=== PATIENT | female | born 1935 | race Caucasian/White ===

== ENCOUNTER 2020-07-06 09:02 | Observation (INO) ==
[2020-07-06] MEDS ORDERED: NORMAL SALINE 1,000 ML IV ONE (09:42)
--- NOTE | 2020-07-06 10:16 | ERNOTE ---
ER Female HPI Date of Service: 07/06/20 Stated Complaint: dizziness Presenting Symptoms: other - uti Time Seen by Provider: 07/06/20 09:18 Source: patient Exam Limitations: no limitations Immunizations: IMMUNIZATION HX Immunizations Up to Date Yes History of Influenza Vaccine Yes Hx Pneumococcal Vaccination Yes Allergies/Adverse Reactions: Allergies No Known Allergies Allergy (Unverified 03/11/19 08:51) Home Medications: HOME MEDICATIONS calcium carbonate-vitamin D3 600 mg (1,500 mg)-800 unit tablet 1 tab PO DAILY 03/11/19 [Last Taken Unknown] cholecalciferol (vitamin D3) 25 mcg (1,000 unit) capsule 1,000 unit PO DAILY 03/11/19 [Last Taken Unknown] metoprolol tartrate 25 mg tablet 25 mg PO BID 03/11/19 [Last Taken Unknown] - History of Present Illness Narrative: Patient presents to the ED for several complaints. She relates that she has had several days of intermittent dysuria. Some off and on left low back pain. She relates some dizziness with standing. Left leg swelling since the covid from sitting too much. No CP. She relates some SOB with activity. Has not seen anyone else for this. EMS called this am because she was not feeling well. Timing: Present: intermittent Quality: Present: moderate Onset Location: Present: other - dysuria, intermittent low back pain. Radiation: Present: none Activities at Onset: Present: none Prior Abdominal Problems: Present: none Modifying Factors - (Improves): Present: other - nothing Modifying Factors - (Worsens): Present: other - nothing Associated Symptoms: Present: dysuria. Absent: fever/chills, vomiting Prior Treatment: Absent: recently seen, currently on antibiotics Review of Systems - Review of Systems Constitutional: Absent: fever ENT: Present: other - sinus problems ever since COVID Respiratory: Absent: orthopnea Cardiology: Absent: chest pain Gastrointestinal/Abdominal: Absent: abdominal pain Genitourinary: Present: See HPI Musculoskeletal: Present: See HPI Neurological: Absent: weakness All Other Systems: All systems neg except as marked Medical History (Last Reviewed 07/06/20 @ 10:15 by Shahram Atkins MD) Afib (Chronic) Surgical History: Surgical History (Last Reviewed 07/06/20 @ 10:15 by Shahram Atkins MD) Femur fracture (Chronic) October 2017 Family History: Family History (Last Reviewed 07/06/20 @ 10:15 by Shahram Atkins MD) Other No pertinent family history Social History: (Last Reviewed 07/06/20 @ 10:15 by Shahram Atkins MD) Social History: Marital status: lives independently: Yes household members: spouse current occupational status: retired Service: No Tobacco: Smoking Status: Never smoker Alcohol: alcohol intake: never Substance Use: substance use type: does not use Dietary Habits: caffeine: Yes Type: coffee Physical Exam - Physical Exam General Appearance: Present: alert, other - mild tachypnea Head Exam: Present: normal inspection, no evidence of injury Eye Exam: Normal inspection: bilateral, PERRL: bilateral Ears, Nose, Throat: Present: normal ENT inspection Neck: Present: normal inspection Respiratory: Present: no respiratory distress, no accessory muscle use, lungs clear, other - tachypnea noted Cardiovascular/Chest: Present: regular rate, rhythm, normal peripheral pulses Gastrointestinal/Abdominal: Present: normal bowel sounds, nontender, nondistended, soft Back Exam: Absent: CVA tenderness (R), CVA tenderness (L) Extremity Exam: Present: other - left low leg swelling, non-tender Neurological Exam: Present: alert, no motor/sensory deficits, other - NIH - 0 Skin Exam: Present: normal color, warm/dry Progress - Results and Orders Patient's Lab Results:: I have reviewed the patient's lab results. - Vital Signs Patient's Vital Signs:: I have reviewed the patient's vital signs. Vital Signs: Vital Signs 07/06/20 09:02 07/06/20 09:13 Temperature 36.2 C Pulse Rate 95 107 H Respiratory Rate 40 H Blood Pressure 214/86 H O2 Sat by Pulse Oximetry 97 - EKG EKG #1 EKG: NSR EKG read: Interp. by me EKG Comments: NSR rate 77. Non-specific ST/T wave changes, no STEMI noted. - X-Ray X-Ray #1 X-Ray: chest Interpretation: Interp. by me X-ray Comments: I personally reviewed CXR image as well as official radiology report - CT/Ultrasound CT/Ultrasound Narrative: I reviewed the official radiology report for CT chest. - Progress/Reassessment Chief Complaint: Urinary Tract Problems Progress Note-Subjective: 07/06/20 13:16 Patient quite weak with ambulation and desaturated to 87% with ambulation and needed assistance. Given she lives at home alone she is unable to go home. Treated elevated BNP with IV Lasix. IV ABx given. I tried to contact Dr Sainz, then spoke with Dr Grover who will admit. I ordered a LLE venous doppler d/t the swelling and elevated d-dimer. THis will be done after she goes to the floor so Dr Grover can check those results. Patient understands. Departure Clinical Impression: History of COVID-19, Multifocal pneumonia, Tachypnea, Hypoxia, Lives alone - Departure Disposition: Still a patient Condition: Fair Referrals: Hoda Sainz, [Primary Care Provider] -
[2020-07-06 10:17] LABS: Hematocrit 38.8 % (37.0-47.0); Mean Cell Volume 86.8 fl (78-100); Mean Corpuscular Hemoglobin 26.8 pg (27-31); Mean Corpuscular Hgb Conc 30.9 g/dl (32-36); Mean Platelet Volume 9.1 fl (8-12.5); Neutrophil # 7.3 K/mm3 (1.3-6.0); Neutrophil % 84.8 % (42-75.0); Platelet Count 356 K/mm3 (150-450); Red Blood Count 4.47 M/mm3 (4.2-5.4); Red Cell Distribution Width 15.2 % (11.5-14.0); White Blood Count 8.6 K/mm3 (4.0-10.5)
[2020-07-06 10:18] LABS: Urine Appearance Slightly Cloudy (CLEAR); Urine Bacteria 1+; Urine Bilirubin Negative (NEGATIVE); Urine Blood 5 /ul (NEGATIVE); Urine Color Yellow; Urine Ketone 5 mg/dL (NEGATIVE); Urine Nitrite Negative (NEGATIVE); Urine Protein 15 mg/dL (NEGATIVE); Urine RBC 0-5 /hpf (0-5); Urine Urobilinogen Normal (NORMAL); Urine WBC 0-5 /hpf (0-5)
[2020-07-06 10:19] LABS: Urine Mucus Few - 1+
[2020-07-06 10:39] LABS: ALT 20 U/L (19-67); AST 18 U/L (0-48); Albumin * 2.3 gm/dl (3.4-5.0); Alkaline Phosphatase * 115 U/L (50-170); Anion Gap 9.1 mmol/L (6.8-13.8); BNP * 1078 pg/mL (5-550); BUN/Creatinine Ratio 20.7 (9.0-21.6); Bilirubin, Total 0.2 mg/dL (0.0-1.1); Blood Urea Nitrogen 12 mg/dL (3-23); Ca. Corrected For Albumin 10.7 mg/dL (8.4-10.2); Calcium * 9.7 mg/dL (7.9-10.9); Carbon Dioxide 33.6 mmol/L (24-32.6); Chloride 98 mmol/L (97-106); Glucose * 144 mg/dL (70-110); Potassium 3.7 mmol/L (3.4-4.6); Sodium 137 mmol/L (132-142); Total Protein 7.2 gm/dL (6.2-8.2); Troponin I Less than 0.017 ng/mL (0.00-0.10)
[2020-07-06] MEDS ORDERED: FUROSEMIDE 10 MG/ML VIAL IV ONE (10:55)
[2020-07-06] MEDS ORDERED: cefTRIAXone SODIUM 1,000 MG/100 ML BAG IV ONE (12:12)
[2020-07-06] MEDS ORDERED: AZITHROMYCIN 500 MG in DEXTROSE 5 % IN WATER 250 ML IV ONE ×2 (12:30)
[2020-07-06] MEDS ORDERED: METOPROLOL TARTRATE 25 MG TABLET PO ONE (17:19)
[2020-07-06] MEDS ORDERED: METOPROLOL TARTRATE 1 MG/ML AMPUL IV ONE (17:48)
--- NOTE | 2020-07-06 17:48 | HP ---
Chief Complaint - Chief Complaint Date of Service: 07/06/20 Time of Service: 17:48 Chief Complaint: Shortness of breath History of Present Illness: 84-year-old female presented to the ER with a couple concerns. Most of the all looks to be related to bilateral lower lobe multifocal pneumonia. White count was within normal limits though she is been afebrile. Patient was started on Rocephin and azithromycin in the ER. She was mildly hypoxic with ambulation, dropped down to 8788% range. She had concerns for urinary symptoms but her UA was negative for infection. Her labs in the ER showed a white count of 8.6 with a left shift to 84.8. She also had an elevated D-dimer at 3.54 which is why they got the CT angiogram which showed the multifocal pneumonia but was negative for pulmonary embolus. Patient also had a ultrasound of her left lower extremity as it was little swollen compared to the right but it came back negative for DVT and just showed subcutaneous soft tissue edema of the left calf. Her chemistries were fairly unremarkable as she had a negative lactic acid, her kidney function was appropriate, electrolytes were within normal limits, though she did have a mildly elevated BNP at 1078. The rest of her vital signs are stable, her blood pressure was within normal limits, and she was afebrile. She was transferred to the floor for observation and is comfortable at this time. Likely discharge home tomorrow on azithromycin for an additional 4 days. Medical History (Last Reviewed 07/06/20 @ 15:40 by Jo-Ann Renteria RN) Afib (Chronic) Surgical History: Surgical History (Last Reviewed 07/06/20 @ 15:41 by Jo-Ann Renteria RN) Femur fracture (Chronic) October 2017 Family History: Family History (Last Reviewed 07/06/20 @ 15:41 by Jo-Ann Renteria RN) Other No pertinent family history Social History: (Last Reviewed 07/06/20 @ 15:41 by Jo-Ann Renteria RN) Social History: Marital status: / lives independently: Yes current occupational status: retired Highest level of school completed/degree received: high school graduate Service: No Tobacco: Smoking Status: Never smoker Alcohol: alcohol intake: never Substance Use: substance use type: does not use Dietary Habits: caffeine: Yes Type: coffee Review Of Systems (GEN) - Review of Systems Generalized/Overall Review: Present: Weakness. Absent: Chills, Fever EENTM: Present: No Symptoms Reported Respiratory: Present: Shortness of Breath. Absent: Cough, Stridor, Wheezing Cardiac: Present: Edema. Absent: Chest Pain, Palpitations Abdominal: Absent: Nausea, Vomiting, Abdominal Pain Genitourinary: Present: Urgency. Absent: Burning, Itching, Frequency Musculoskeletal: Present: Back Pain Neurological: Present: No Symptoms Reported Skin: Present: No Symptoms Reported Endocrine: Present: No Symptoms Reported Immunizations: IMMUNIZATION HX Immunizations Up to Date Yes History of Influenza Vaccine Yes Hx Pneumococcal Vaccination Yes Allergies/Adverse Reactions: Allergies Allergy/AdvReac Type Severity Reaction Status Date / Time No Known Allergies Allergy Verified 07/06/20 15:42 Home Medications: HOME MEDICATIONS calcium carbonate-vitamin D3 600 mg (1,500 mg)-800 unit tablet 1 tab PO DAILY 03/11/19 [Last Taken Unknown] cholecalciferol (vitamin D3) 25 mcg (1,000 unit) capsule 1,000 unit PO DAILY 03/11/19 [Last Taken Unknown] metoprolol tartrate 25 mg tablet 25 mg PO BID 03/11/19 [Last Taken Unknown] Exam - Exam Vital Signs: Vital Signs - Last Taken Temp 36.5 C 07/06/20 15:44 Pulse 106 H 07/06/20 17:41 Resp 20 07/06/20 15:44 BP 163/92 H 07/06/20 17:41 Pulse Ox 94 07/06/20 15:44 Constitutional: Present: Alert, Oriented x3, Cooperative, Elderly, Thin and frail ENT Exam: Present: hearing grossly normal Eye Exam: bilateral eye: normal inspection, EOMI Back Exam: Present: no CVA tenderness Respiratory: Present: crackles Cardiovascular/Chest: Present: systolic murmur - 2+, irregularly irregular Abdomen: Present: soft, nontender, nondistended Extremity: Present: calf tenderness - Left calf, lower extremity edema Skin Exam: Present: normal color, warm/dry Appearance: Present: appropriate appearance, appropriate insight Eye contact: Present: cooperative, good eye contact Thoughts: Present: normal thought pattern, normal mood /affect Diagnostic Studies: Abnormal Lab Results 07/06/20 07/06/20 07/06/20 Range/Units 10:10 10:10 10:11 Hgb 12.0 L (12.5-16.0) gm/dL MCH 26.8 L (27-31) pg MCHC 30.9 L (32-36) g/dl RDW 15.2 H (11.5-14.0) % Neutrophils % 84.8 H (42-75.0) % Lymphocytes % 5.2 L (20-51) % Monocytes % 9.4 H (0.0-9) % Neutrophils # 7.3 H (1.3-6.0) K/mm3 Lymphocytes # 0.45 L (1.5-3.5) k/mm3 D-Dimer 3.54 H (0.19-0.49) ug/mL Carbon Dioxide (24-32.6) mmol/L Random Glucose (70-110) mg/dL Calcium Adj for Albumin (8.4-10.2) mg/dL B-Natriuretic Peptide (5-550) pg/mL Albumin (3.4-5.0) gm/dl Procalcitonin Less than 0.05 L (0.05-0.50) ng/mL Urine Protein (NEGATIVE) mg/dL Urine Blood (NEGATIVE) /ul Urine Bacteria (NONE) Urine Mucus (NONE) 07/06/20 07/06/20 Range/Units 10:15 10:28 Hgb (12.5-16.0) gm/dL MCH (27-31) pg MCHC (32-36) g/dl RDW (11.5-14.0) % Neutrophils % (42-75.0) % Lymphocytes % (20-51) % Monocytes % (0.0-9) % Neutrophils # (1.3-6.0) K/mm3 Lymphocytes # (1.5-3.5) k/mm3 D-Dimer (0.19-0.49) ug/mL Carbon Dioxide 33.6 H (24-32.6) mmol/L Random Glucose 144 H (70-110) mg/dL Calcium Adj for Albumin 10.7 H (8.4-10.2) mg/dL B-Natriuretic Peptide 1078 H (5-550) pg/mL Albumin 2.3 L (3.4-5.0) gm/dl Procalcitonin (0.05-0.50) ng/mL Urine Protein 15 H (NEGATIVE) mg/dL Urine Blood 5 H (NEGATIVE) /ul Urine Bacteria 1+ H (NONE) Urine Mucus Few - 1+ H (NONE) Laboratory Results WBC 8.6 K/mm3 (4.0-10.5) 07/06/20 10:10 RBC 4.47 M/mm3 (4.2-5.4) 07/06/20 10:10 Hgb 12.0 gm/dL (12.5-16.0) L 07/06/20 10:10 Hct 38.8 % (37.0-47.0) 07/06/20 10:10 MCV 86.8 fl (78-100) 07/06/20 10:10 MCH 26.8 pg (27-31) L 07/06/20 10:10 MCHC 30.9 g/dl (32-36) L 07/06/20 10:10 RDW 15.2 % (11.5-14.0) H 07/06/20 10:10 Plt Count 356 K/mm3 (150-450) 07/06/20 10:10 MPV 9.1 fl (8-12.5) 07/06/20 10:10 Immature Gran % (Auto) 0.30 % (0.001-0.429) 07/06/20 10:10 Immature Gran # (Auto) 0.03 K/mm3 (0.000-0.0310) 07/06/20 10:10 Neutrophils % 84.8 % (42-75.0) H 07/06/20 10:10 Lymphocytes % 5.2 % (20-51) L 07/06/20 10:10 Monocytes % 9.4 % (0.0-9) H 07/06/20 10:10 Eosinophils % 0.1 % (0.0-3.0) 07/06/20 10:10 Basophils % 0.2 % (0.0-1.0) 07/06/20 10:10 Nucleated RBC % 0.0 k/mm3 (0-1) 07/06/20 10:10 Neutrophils # 7.3 K/mm3 (1.3-6.0) H 07/06/20 10:10 Lymphocytes # 0.45 k/mm3 (1.5-3.5) L 07/06/20 10:10 Monocytes # 0.8 k/mm3 (0.0-1.0) 07/06/20 10:10 Eosinophils # 0.0 k/mm3 (0.0-0.7) 07/06/20 10:10 Absolute Basophils 0.0 k/mm3 (0.0-0.1) 07/06/20 10:10 D-Dimer 3.54 ug/mL (0.19-0.49) H 07/06/20 10:10 Sodium 137 mmol/L (132-142) 07/06/20 10:28 Plasma Sodium 138 mmol/L (130-142) 07/06/20 10:28 Potassium 3.7 mmol/L (3.4-4.6) 07/06/20 10:28 Chloride 98 mmol/L (97-106) 07/06/20 10:28 Carbon Dioxide 33.6 mmol/L (24-32.6) H 07/06/20 10:28 Anion Gap 9.1 mmol/L (6.8-13.8) 07/06/20 10:28 BUN 12 mg/dL (3-23) 07/06/20 10:28 Creatinine 0.58 mg/dL (0.4-1.4) 07/06/20 10:28 Est GFR (Non-Af Amer) 106 mL/min (60-130) 07/06/20 10:28 BUN/Creatinine Ratio 20.7 (9.0-21.6) 07/06/20 10:28 Random Glucose 144 mg/dL (70-110) H 07/06/20 10:28 Lactic Acid, Venous 1.3 mmol/L (0.4-2.0) 07/06/20 10:10 Calcium 9.7 mg/dL (7.9-10.9) 07/06/20 10:28 Calcium Adj for Albumin 10.7 mg/dL (8.4-10.2) H 07/06/20 10:28 Total Bilirubin 0.2 mg/dL (0.0-1.1) 07/06/20 10:28 AST 18 U/L (0-48) 07/06/20 10:28 ALT 20 U/L (19-67) 07/06/20 10:28 Alkaline Phosphatase 115 U/L (50-170) 07/06/20 10:28 Troponin I Less than 0.017 ng/mL (0.00-0.10) 07/06/20 10:28 B-Natriuretic Peptide 1078 pg/mL (5-550) H 07/06/20 10:28 Total Protein 7.2 gm/dL (6.2-8.2) 07/06/20 10:28 Albumin 2.3 gm/dl (3.4-5.0) L 07/06/20 10:28 Procalcitonin Less than 0.05 ng/mL (0.05-0.50) L 07/06/20 10:11 Urine Color Yellow 07/06/20 10:15 Urine Appearance Slightly cloudy (CLEAR) 07/06/20 10:15 Urine pH 6.0 pH (5.0-7.0) 07/06/20 10:15 Ur Specific [place] 1.020 SP.GR. (1.005-1.010) 07/06/20 10:15 Urine Protein 15 mg/dL (NEGATIVE) H 07/06/20 10:15 Urine Glucose (UA) Negative mg/dL (NEGATIVE) 07/06/20 10:15 Urine Ketones 5 mg/dL (NEGATIVE) 07/06/20 10:15 Urine Blood 5 /ul (NEGATIVE) H 07/06/20 10:15 Urine Nitrate Negative (NEGATIVE) 07/06/20 10:15 Urine Bilirubin Negative mg/dl (NEGATIVE) 07/06/20 10:15 Urine Urobilinogen Normal EU/dl (NORMAL) 07/06/20 10:15 Ur Leukocyte Esterase Negative /ul (NEGATIVE) 07/06/20 10:15 Urine RBC 0-5 /hpf (0-5) 07/06/20 10:15 Urine WBC 0-5 /hpf (0-5) 07/06/20 10:15 Ur Epithelial Cells 0-5 /hpf (0-5) 07/06/20 10:15 Urine Bacteria 1+ (NONE) H 07/06/20 10:15 Urine Mucus Few - 1+ (NONE) H 07/06/20 10:15 Urine Culture Comments No culture indicated 07/06/20 10:15 SARS-CoV-2 (PCR) Not detected (NotDetected) 07/06/20 13:34 Assessment/Plan - Narrative Narrative: 84-year-old female omitted for observation for fluid resuscitation and IV antibiotics due to multifocal pneumonia. Patient for the most part is asymptomatic and was started feel better after getting some fluids and some food in. Patient will continue on Rocephin and azithromycin while she is here be discharged home on azithromycin with her that be tomorrow as long as she stays stable or in a couple days. She denies cough at this time and she is been afebrile. Of note patient did have runs of V. tach with ambulation. She did receive an extra dose of Lopressor which she normally takes 25 twice daily. She was also given 1 dose of IV Lopressor which brought her back down to a regular rate. She has been in a regular rate since. She denies shortness of breath or chest pain during these episodes. Patient is a DNR and does not wish to have further cardiac work-up. Patient's lab work was unremarkable. Will repeat CBC in the morning. Her chemistry panel was within normal limits. Restarted her home medications. Patient has SCDs for DVT prophylaxis. Diet ordered for her. Nurse will call questions or concerns. 1 hour critical care time spent with patient with reviewing her chart, putting orders in, managing her V. tach. - Assessment/Plan (1) Elevated brain natriuretic peptide (BNP) level Problem: Acute (2) Ventricular tachycardia seen on potline monitor Problem: Acute (3) Multifocal pneumonia Problem: Acute (4) Tachypnea Problem: Acute (5) Hypoxia Problem: Acute (6) Afib Problem: Chronic
[2020-07-06] MEDS: METOPROLOL TARTRATE 25 MG TABLET PO SCH (20:02)
[2020-07-07 07:26] LABS: Hematocrit 37.2 % (37.0-47.0); Hemoglobin 11.3 gm/dL (12.5-16.0); Mean Cell Volume 87.5 fl (78-100); Mean Corpuscular Hemoglobin 26.6 pg (27-31); Mean Corpuscular Hgb Conc 30.4 g/dl (32-36); Mean Platelet Volume 9.2 fl (8-12.5); Neutrophil # 6.8 K/mm3 (1.3-6.0); Neutrophil % 70.8 % (42-75.0); Platelet Count 364 K/mm3 (150-450); Red Blood Count 4.25 M/mm3 (4.2-5.4); Red Cell Distribution Width 15.2 % (11.5-14.0); White Blood Count 9.6 K/mm3 (4.0-10.5)
[2020-07-07] MEDS: METOPROLOL TARTRATE 25 MG TABLET PO SCH (08:28)
[2020-07-07] MEDS ORDERED: AZITHROMYCIN 250 MG TABLET PO SCH (09:00)
--- NOTE | 2020-07-07 12:18 | DS ---
(1) Elevated brain natriuretic peptide (BNP) level Problem: Acute (2) Ventricular tachycardia seen on court recording monitor Problem: Acute (3) Multifocal pneumonia Problem: Acute (4) Tachypnea Problem: Acute (5) Hypoxia Problem: Acute (6) Afib Problem: Chronic Date of Discharge:: 07/07/20 Hospital Course: Patient with bilateral multifocal pneumonia was treated with Rocephin and azithromycin for 2 days while in the hospital. She has made significant improvement and feels much better. No longer is weak or short of breath. Vital signs been stable. She did have a run of V. tach yesterday which improved with Lopressor IV and she is not had any issues since. Heart rates been within the 70s and 80s since. We will go ahead and increase her metoprolol to 25 mg 3 times daily as she has done well with this and her blood pressure will allow. Her white count again was normal this morning. She will be discharged home with an additional 3 days of a azithromycin. No other changes to her chronic medicines. Patient to follow-up with her PCP in 1 week via video appointment. Procedures Performed: none Results and Findings: Pending Mircobiology Results 07/06/20 10:30 Blood Blood Culture - Preliminary NO GROWTH 24 HOURS Lab Pending Results 07/06/20 10:10: WBC 8.6, RBC 4.47, Hgb 12.0 L, Hct 38.8, MCV 86.8, MCH 26.8 L, MCHC 30.9 L, RDW 15.2 H, Plt Count 356, MPV 9.1, Immature Gran % (Auto) 0.30, Immature Gran # (Auto) 0.03, Neutrophils % 84.8 H, Lymphocytes % 5.2 L, Monocytes % 9.4 H, Eosinophils % 0.1, Basophils % 0.2, Nucleated RBC % 0.0, Neutrophils # 7.3 H, Lymphocytes # 0.45 L, Monocytes # 0.8, Eosinophils # 0.0, Absolute Basophils 0.0 07/06/20 10:10: D-Dimer 3.54 H 07/06/20 10:10: Lactic Acid, Venous 1.3 07/06/20 10:11: Procalcitonin Less than 0.05 L 07/06/20 10:15: Urine Color Yellow, Urine Appearance Slightly cloudy, Urine pH 6.0, Ur Specific [place] 1.020, Urine Protein 15 H, Urine Glucose (UA) Negative, Urine Ketones 5, Urine Blood 5 H, Urine Nitrate Negative, Urine Bilirubin Negative, Urine Urobilinogen Normal, Ur Leukocyte Esterase Negative, Urine RBC 0-5, Urine WBC 0-5, Ur Epithelial Cells 0-5, Urine Bacteria 1+ H, Urine Mucus Few - 1+ H, Urine Culture Comments No culture indicated 07/06/20 10:28: Sodium 137, Plasma Sodium 138, Potassium 3.7, Chloride 98, Carbon Dioxide 33.6 H, Anion Gap 9.1, BUN 12, Creatinine 0.58, Est GFR (Non-Af Amer) 106, BUN/Creatinine Ratio 20.7, Random Glucose 144 H, Calcium 9.7, Calcium Adj for Albumin 10.7 H, Total Bilirubin 0.2, AST 18, ALT 20, Alkaline Phosphatase 115, Troponin I Less than 0.017, B-Natriuretic Peptide 1078 H, Total Protein 7.2, Albumin 2.3 L 07/06/20 13:34: SARS-CoV-2 (PCR) Not detected 07/07/20 07:13: WBC 9.6, RBC 4.25, Hgb 11.3 L, Hct 37.2, MCV 87.5, MCH 26.6 L, MCHC 30.4 L, RDW 15.2 H, Plt Count 364, MPV 9.2, Immature Gran % (Auto) 0.40, Immature Gran # (Auto) 0.04 H, Neutrophils % 70.8, Lymphocytes % 17.8 L, Monocytes % 10.5 H, Eosinophils % 0.2, Basophils % 0.3, Nucleated RBC % 0.0, Neutrophils # 6.8 H, Lymphocytes # 1.71, Monocytes # 1.0, Eosinophils # 0.0, Absolute Basophils 0.0 Discharge Location: Home Disposition: Home self-care Condition: Fair Discharge Activity: Activity as tolerated Discharge Diet: General/regular food Referrals: Hoda Sainz DO [Primary Care Provider] - One Week (Video appointment) Additional Patient Instructions (free text): [facility] will call you on Thursday with follow up appointment. Prescriptions (Any new or edited meds): Azithromycin [Zithromax] 250 mg PO DAILY #3 tab Transmission Status: Pending to [place], [place] Complete Home Medications List: Complete Home Medication List: calcium carbonate-vitamin D3 600 mg (1,500 mg)-800 unit tablet 1 tab PO DAILY 03/11/19 cholecalciferol (vitamin D3) 25 mcg (1,000 unit) capsule 1,000 unit PO DAILY 03/11/19 metoprolol tartrate 25 mg tablet 25 mg PO BID 03/11/19 Azithromycin [Zithromax] 250 mg PO DAILY #3 tab 07/07/20 Forms: Patient Portal Registration
[2020-07-07 15:29] VITALS: BP 155/83
== END 2020-07-07 16:06 | disposition home or self-care (01) ==
LOC: ER 09:02 → MS 09:02
PROVIDERS: ADMIT Family Medicine; ATTEND Family Medicine

== ENCOUNTER 2020-07-28 09:04 | Observation (INO) ==
[2020-07-28 09:45] LABS: Hematocrit 36.3 % (37.0-47.0); Mean Cell Volume 88.1 fl (78-100); Mean Corpuscular Hemoglobin 26.7 pg (27-31); Mean Corpuscular Hgb Conc 30.3 g/dl (32-36); Mean Platelet Volume 9.1 fl (8-12.5); Neutrophil # 11.7 K/mm3 (1.3-6.0); Neutrophil % 87.6 % (42-75.0); Platelet Count 407 K/mm3 (150-450); Red Blood Count 4.12 M/mm3 (4.2-5.4); Red Cell Distribution Width 15.4 % (11.5-14.0); White Blood Count 13.3 K/mm3 (4.0-10.5)
[2020-07-28 10:00] LABS: BUN/Creatinine Ratio 31.5 (9.0-21.6)
[2020-07-28 10:01] LABS: Albumin * 2.1 gm/dl (3.4-5.0); Anion Gap 11.3 mmol/L (6.8-13.8); Bilirubin, Total 0.2 mg/dL (0.0-1.1); Ca. Corrected For Albumin 10.8 mg/dL (8.4-10.2); Calcium * 9.6 mg/dL (7.9-10.9); Carbon Dioxide 30.7 mmol/L (24-32.6); Troponin I 0.064 ng/mL (0.00-0.10)
[2020-07-28] MEDS ORDERED: FUROSEMIDE 10 MG/ML VIAL IV ONE (10:21)
[2020-07-28 10:52] LABS: Urine Bilirubin Negative (NEGATIVE); Urine Ketone Negative (NEGATIVE); Urine Nitrite Negative (NEGATIVE); Urine Protein Negative (NEGATIVE); Urine Urobilinogen Normal (NORMAL)
[2020-07-28 11:04] LABS: Urine Appearance Slightly Cloudy (CLEAR); Urine Bacteria TRACE; Urine Blood 10 /ul (NEGATIVE); Urine Color Yellow; Urine RBC 0-5 /hpf (0-5); Urine WBC 0-5 /hpf (0-5)
--- NOTE | 2020-07-28 12:39 | ERNOTE ---
Dyspnea - Date Date of Service: 07/28/20 - General Presenting Symptoms: shortness of breath Time Seen by Provider: 07/28/20 09:21 Source: patient Exam Limitations: no limitations - Immun/Allergies/Home Medications Immunizations: IMMUNIZATION HX Immunizations Up to Date Yes History of Influenza Vaccine Yes Hx Pneumococcal Vaccination Yes Allergies/Adverse Reactions: Allergies No Known Allergies Allergy (Verified 07/28/20 09:51) Home Medications: HOME MEDICATIONS calcium carbonate-vitamin D3 600 mg (1,500 mg)-800 unit tablet 1 tab PO DAILY 03/11/19 [Last Taken Unknown] cholecalciferol (vitamin D3) 25 mcg (1,000 unit) capsule 1,000 unit PO DAILY 03/11/19 [Last Taken Unknown] metoprolol tartrate 25 mg tablet 25 mg PO BID 03/11/19 [Last Taken Unknown] - History of Present Illness Narrative: Patient presents to the ED for SOB. She has been getting gradually more SOB, especially with exertion. Lives at home alone. She is not on antibiotics, has stopped these but had recent hospitalization for pneumonia. No CP. She called the ambulance which brought her in today. SOB worse with activity. Better with rest. Severity: moderate Treatment TAK[employer]: paramedics Initiating event: Reports: unknown Frequency of episodes: Reports: no prior episodes Modifying Factors - (Improves): Reports: rest Associated Symptoms-Dyspnea: Reports: cough, dizziness. Denies: fever/chills, chest pain/discomfort, ankle/leg swelling Prior Treatment: Denies: currently on antibiotics Review of Systems - Review of Systems Constitutional: Absent: fever EYE: Present: no symptoms reported ENT: Absent: sore throat Respiratory: Present: See HPI Cardiology: Absent: chest pain Gastrointestinal/Abdominal: Absent: abdominal pain Genitourinary: Present: no symptoms reported Neurological: Absent: headache All Other Systems: All systems neg except as marked Medical History (Last Reviewed 07/28/20 @ 12:30 by Shahram Atkins MD) Afib (Chronic) Surgical History: Surgical History (Last Reviewed 07/28/20 @ 12:30 by Shahram Atkins MD) Femur fracture (Chronic) October 2017 Family History: Family History (Last Reviewed 07/28/20 @ 12:30 by Shahram Atkins MD) Other No pertinent family history Social History: (Last Reviewed 07/28/20 @ 12:30 by Shahram Atkins MD) Social History: Marital status: / lives independently: Yes current occupational status: retired Highest level of school completed/degree received: high school graduate Service: No Tobacco: Smoking Status: Never smoker Alcohol: alcohol intake: never Substance Use: substance use type: does not use Dietary Habits: caffeine: Yes Type: coffee Physical Exam - Physical Exam General Appearance: Present: alert, other - mild tachypnea Head Exam: Present: normal inspection, no evidence of injury Eye Exam: Normal inspection: bilateral, PERRL: bilateral Ears, Nose, Throat: Present: normal ENT inspection Neck: Present: normal inspection Respiratory: Present: crackles, rales, other - mild tachypnea Cardiovascular/Chest: Present: regular rate, rhythm Gastrointestinal/Abdominal: Present: normal bowel sounds, nontender, nondistended, soft Back Exam: Absent: CVA tenderness (R), CVA tenderness (L) Extremity Exam: Present: other - left low leg edema, she states this is chronic Neurological Exam: Present: alert, no motor/sensory deficits Skin Exam: Present: normal color, warm/dry Progress - Results and Orders Patient's Lab Results:: I have reviewed the patient's lab results. - Vital Signs Patient's Vital Signs:: I have reviewed the patient's vital signs. Vital Signs: Vital Signs 07/28/20 09:05 07/28/20 09:26 07/28/20 10:30 Temperature 37.3 C Pulse Rate 95 95 100 Respiratory Rate 44 H 28 H 20 Blood Pressure 142/48 162/78 H 137/68 O2 Sat by Pulse Oximetry 90 L 90 L 93 07/28/20 11:11 07/28/20 12:04 Temperature Pulse Rate 94 Respiratory Rate 24 H Blood Pressure 137/66 139/66 O2 Sat by Pulse Oximetry 91 L 86 L - EKG EKG #1 EKG: NSR EKG read: Interp. by me EKG Comments: NSR rate 95. Non-specific ST/T wave changes, no STEMI noted - X-Ray X-Ray #1 X-Ray: chest Interpretation: Interp. by me X-ray Comments: No real time radiology reads. Chronic changes, pulm vasc congestion. I personally reviewed CXR images. - CT/Ultrasound CT/Ultrasound Narrative: I reviewed official radiology report for CT caorta. - Progress/Reassessment Chief Complaint: Dyspnea Progress Note-Subjective: 07/28/20 12:36 Patient given IV lasix. Still desats to 86% with short ambulation. She does not feel well enough to go home given this and that seems very reasonable. She will be admitted and treated for new onset CHF. No clear evidence of pneumonia. D/W Dr Stiles who will admit. Departure Clinical Impression: New onset of congestive heart failure, Hypoxia, (dyspnea on exertion) - Departure Disposition: Still a patient Condition: Fair Referrals: Hoda Sainz DO [Primary Care Provider] -
[2020-07-28] MEDS: METOPROLOL TARTRATE 25 MG TABLET PO SCH (20:19)
--- NOTE | 2020-07-28 22:36 | HP ---
Chief Complaint - Chief Complaint Date of Service: 07/28/20 Time of Service: 20:00 Chief Complaint: Shortness of breath History of Present Illness: Laura is an 85 yo female that presented to the [facility] ER with progressive shortness of breath over the last few days. She was recently treated with COVID and pneumonia. She did not have to use oxygen, but did have to stop the antibiotics short as they were "too strong". She reports she has been feeling weak and tired and not having much breath to have much activity. In the ER her BNP was a little elevated, as was a D-Dimer. She had a CTA which showed no PE and infiltrates presents similar to prior study. She denies coughing or fever. She denies lower extremity edema. Medical History (Last Updated 07/28/20 @ 15:30 by Lupe Pringle RN) COVID-19 (Acute) Afib (Chronic) Surgical History: Surgical History (Last Reviewed 07/28/20 @ 12:30 by Shahram Atkins MD) Femur fracture (Chronic) October 2017 Family History: Family History (Last Reviewed 07/28/20 @ 12:30 by Shahram Atkins MD) Other No pertinent family history Social History: (Last Reviewed 07/28/20 @ 12:30 by Shahram Atkins MD) Social History: Marital status: / lives independently: Yes current occupational status: retired Highest level of school completed/degree received: high school graduate Service: No Tobacco: Smoking Status: Never smoker Alcohol: alcohol intake: never Substance Use: substance use type: does not use Dietary Habits: caffeine: Yes Type: coffee Review Of Systems (GEN) - Review of Systems Generalized/Overall Review: Present: Weakness. Absent: Chills, Fever EENTM: Present: No Symptoms Reported Respiratory: Present: Shortness of Breath. Absent: Cough Cardiac: Present: Palpitations, Other - Fast heart rate at times. Absent: Chest Pain, Edema Abdominal: Absent: Nausea, Vomiting Genitourinary: Absent: Burning, Frequency Musculoskeletal: Present: No Symptoms Reported Neurological: Present: Weakness. Absent: Numbness Skin: Absent: Lesions, Rash Immunizations: IMMUNIZATION HX Immunizations Up to Date Yes History of Influenza Vaccine Yes Hx Pneumococcal Vaccination Yes Allergies/Adverse Reactions: Allergies Allergy/AdvReac Type Severity Reaction Status Date / Time No Known Allergies Allergy Verified 07/28/20 09:51 Home Medications: HOME MEDICATIONS calcium carbonate-vitamin D3 600 mg (1,500 mg)-800 unit tablet 1 tab PO DAILY 03/11/19 [Last Taken Unknown] cholecalciferol (vitamin D3) 25 mcg (1,000 unit) capsule 1,000 unit PO DAILY 03/11/19 [Last Taken Unknown] metoprolol tartrate 25 mg tablet 25 mg PO BID 03/11/19 [Last Taken Unknown] Exam - Exam Vital Signs: Vital Signs - Last Taken Temp 36.5 C 07/28/20 20:22 Pulse 155 H 07/28/20 20:22 Resp 24 H 07/28/20 20:22 BP 151/77 H 07/28/20 20:22 Pulse Ox 90 L 07/28/20 20:56 Constitutional: Present: Alert, Oriented x3, Cooperative, Thin and frail ENT Exam: Present: hearing grossly normal Eye Exam: bilateral eye: normal inspection Respiratory: Present: lungs clear, normal breath sounds, no respiratory distress Cardiovascular/Chest: Present: tachycardia, irregularly irregular Peripheral Pulses: radial (R): 2+, radial (L): 2+ Abdomen: Present: Normal bowel sounds, soft, nontender, nondistended Extremity: Present: normal inspection, normal capillary refill. Absent: lower extremity edema Skin Exam: Present: normal color, warm/dry, no cyanosis Lymphatic: Present: no adenopathy Appearance: Present: appropriate appearance, appropriate insight Eye contact: Present: cooperative, good eye contact, normal speech Thoughts: Present: normal thought pattern, no apparent hallucination Diagnostic Studies: Abnormal Lab Results 07/28/20 07/28/20 07/28/20 Range/Units 09:20 09:20 09:37 WBC 13.3 H (4.0-10.5) K/mm3 RBC 4.12 L (4.2-5.4) M/mm3 Hgb 11.0 L (12.5-16.0) gm/dL Hct 36.3 L (37.0-47.0) % MCH 26.7 L (27-31) pg MCHC 30.3 L (32-36) g/dl RDW 15.4 H (11.5-14.0) % Immature Gran % (Auto) 0.60 H (0.001-0.429) % Immature Gran # (Auto) 0.08 H (0.000-0.0310) K/mm3 Neutrophils % 87.6 H (42-75.0) % Lymphocytes % 4.1 L (20-51) % Neutrophils # 11.7 H (1.3-6.0) K/mm3 Lymphocytes # 0.54 L (1.5-3.5) k/mm3 D-Dimer (0.19-0.49) ug/mL BUN/Creatinine Ratio 31.5 H (9.0-21.6) Random Glucose 117 H (70-110) mg/dL Calcium Adj for Albumin 10.8 H (8.4-10.2) mg/dL B-Natriuretic Peptide 1288 H (5-550) pg/mL Albumin 2.1 L (3.4-5.0) gm/dl Urine Blood (NEGATIVE) /ul 07/28/20 07/28/20 Range/Units 09:37 10:30 WBC (4.0-10.5) K/mm3 RBC (4.2-5.4) M/mm3 Hgb (12.5-16.0) gm/dL Hct (37.0-47.0) % MCH (27-31) pg MCHC (32-36) g/dl RDW (11.5-14.0) % Immature Gran % (Auto) (0.001-0.429) % Immature Gran # (Auto) (0.000-0.0310) K/mm3 Neutrophils % (42-75.0) % Lymphocytes % (20-51) % Neutrophils # (1.3-6.0) K/mm3 Lymphocytes # (1.5-3.5) k/mm3 D-Dimer 2.16 H (0.19-0.49) ug/mL BUN/Creatinine Ratio (9.0-21.6) Random Glucose (70-110) mg/dL Calcium Adj for Albumin (8.4-10.2) mg/dL B-Natriuretic Peptide (5-550) pg/mL Albumin (3.4-5.0) gm/dl Urine Blood 10 H (NEGATIVE) /ul Laboratory Results WBC 13.3 K/mm3 (4.0-10.5) H 07/28/20 09:20 RBC 4.12 M/mm3 (4.2-5.4) L 07/28/20 09:20 Hgb 11.0 gm/dL (12.5-16.0) L 07/28/20 09:20 Hct 36.3 % (37.0-47.0) L 07/28/20 09:20 MCV 88.1 fl (78-100) 07/28/20 09:20 MCH 26.7 pg (27-31) L 07/28/20 09:20 MCHC 30.3 g/dl (32-36) L 07/28/20 09:20 RDW 15.4 % (11.5-14.0) H 07/28/20 09:20 Plt Count 407 K/mm3 (150-450) 07/28/20 09:20 MPV 9.1 fl (8-12.5) 07/28/20 09:20 Immature Gran % (Auto) 0.60 % (0.001-0.429) H 07/28/20 09:20 Immature Gran # (Auto) 0.08 K/mm3 (0.000-0.0310) H 07/28/20 09:20 Neutrophils % 87.6 % (42-75.0) H 07/28/20 09:20 Lymphocytes % 4.1 % (20-51) L 07/28/20 09:20 Monocytes % 7.5 % (0.0-9) 07/28/20 09:20 Eosinophils % 0.0 % (0.0-3.0) 07/28/20 09:20 Basophils % 0.2 % (0.0-1.0) 07/28/20 09:20 Nucleated RBC % 0.0 k/mm3 (0-1) 07/28/20 09:20 Neutrophils # 11.7 K/mm3 (1.3-6.0) H 07/28/20 09:20 Lymphocytes # 0.54 k/mm3 (1.5-3.5) L 07/28/20 09:20 Monocytes # 1.0 k/mm3 (0.0-1.0) 07/28/20 09:20 Eosinophils # 0.0 k/mm3 (0.0-0.7) 07/28/20 09:20 Absolute Basophils 0.0 k/mm3 (0.0-0.1) 07/28/20 09:20 D-Dimer 2.16 ug/mL (0.19-0.49) H 07/28/20 09:37 Sodium 138 mmol/L (132-142) 07/28/20 09:20 Plasma Sodium 138 mmol/L (130-142) 07/28/20 09:20 Potassium 4.0 mmol/L (3.4-4.6) 07/28/20 09:20 Chloride 100 mmol/L (97-106) 07/28/20 09:20 Carbon Dioxide 30.7 mmol/L (24-32.6) 07/28/20 09:20 Anion Gap 11.3 mmol/L (6.8-13.8) 07/28/20 09:20 BUN 17 mg/dL (3-23) 07/28/20 09:20 Creatinine 0.54 mg/dL (0.4-1.4) 07/28/20 09:20 Est GFR (Non-Af Amer) 115 mL/min (60-130) 07/28/20 09:20 BUN/Creatinine Ratio 31.5 (9.0-21.6) H 07/28/20 09:20 Random Glucose 117 mg/dL (70-110) H 07/28/20 09:20 Lactic Acid, Venous 1.5 mmol/L (0.4-2.0) 07/28/20 09:20 Calcium 9.6 mg/dL (7.9-10.9) 07/28/20 09:20 Calcium Adj for Albumin 10.8 mg/dL (8.4-10.2) H 07/28/20 09:20 Total Bilirubin 0.2 mg/dL (0.0-1.1) 07/28/20 09:20 AST 24 U/L (0-48) 07/28/20 09:20 ALT 24 U/L (19-67) 07/28/20 09:20 Alkaline Phosphatase 126 U/L (50-170) 07/28/20 09:20 Troponin I 0.064 ng/mL (0.00-0.10) 07/28/20 09:20 B-Natriuretic Peptide 1288 pg/mL (5-550) H 07/28/20 09:37 Total Protein 7.0 gm/dL (6.2-8.2) 07/28/20 09:20 Albumin 2.1 gm/dl (3.4-5.0) L 07/28/20 09:20 Lipase 110 U/L (73-393) 07/28/20 09:20 Procalcitonin 0.12 ng/mL (0.05-0.50) 07/28/20 09:20 Urine Color Yellow 07/28/20 10:30 Urine Appearance Slightly cloudy (CLEAR) 07/28/20 10:30 Urine pH 6.0 pH (5.0-7.0) 07/28/20 10:30 Ur Specific [place] 1.020 SP.GR. (1.005-1.010) 07/28/20 10:30 Urine Protein Negative mg/dL (NEGATIVE) 07/28/20 10:30 Urine Glucose (UA) Negative mg/dL (NEGATIVE) 07/28/20 10:30 Urine Ketones Negative mg/dL (NEGATIVE) 07/28/20 10:30 Urine Blood 10 /ul (NEGATIVE) H 07/28/20 10:30 Urine Nitrate Negative (NEGATIVE) 07/28/20 10:30 Urine Bilirubin Negative mg/dl (NEGATIVE) 07/28/20 10:30 Urine Urobilinogen Normal EU/dl (NORMAL) 07/28/20 10:30 Ur Leukocyte Esterase Negative /ul (NEGATIVE) 07/28/20 10:30 Urine RBC 0-5 /hpf (0-5) 07/28/20 10:30 Urine WBC 0-5 /hpf (0-5) 07/28/20 10:30 Ur Epithelial Cells 0-5 /hpf (0-5) 07/28/20 10:30 Urine Bacteria Trace (NONE) 07/28/20 10:30 Urine Culture Comments No culture indicated 07/28/20 10:30 SARS-CoV-2 (PCR) Not detected (NotDetected) 07/28/20 12:09 Assessment/Plan - Narrative Narrative: Laura is an 85 yo female with acute respiratory failure secondary to acute diastolic CHF that I presume to be secondary to uncontrolled atrial fibrillation. She has atrial fibrillation with RVR at times. Tachycardia is not too persistent to require diltiazem dosing in the ER, but her heart does range anywhere from upper 90's to 160s. She does not recall if she took her morning metoprolol. Will start with her usual dose of 25mg but may need to increase this for better control. She was given IV lasix in the ER. She is on oxygen at 2lpm via NC due to hypoxia of 86% in the ER and required 2lpm to keep sats >89%. Will wean from oxygen as able. Will admit to observation as she may be able to discharge to home tomorrow once off oxygen, but may also need inpatient stay if unable to wean or control heart rate. I do not see evidence of infection present. Chest imaging is similar to prior and no leukocytosis or fever. She has calorie deficient malnutrition based off of BMP of 14. - Assessment/Plan (1) Acute respiratory failure with hypoxia Problem: Acute (2) Atrial fibrillation with RVR Problem: Acute (3) Acute diastolic CHF (congestive heart failure) Problem: Acute (4) Malnutrition Problem: Acute Qualifiers: Malnutrition type: protein-calorie malnutrition Protein-calorie maln utrition severity: unspecified severity Qualified Code(s): E46 - Unspecified protein-calorie malnutrition (5) History of COVID-19 Problem: Acute
[2020-07-29] MEDS: METOPROLOL TARTRATE 25 MG TABLET PO SCH (08:12)
[2020-07-29] MEDS ORDERED: CHOLECALCIFEROL 1,000 UNIT CAPSULE PO SCH (09:00)
[2020-07-29] MEDS ORDERED: METOPROLOL TARTRATE 25 MG TABLET PO SCH (09:00)
[2020-07-29] MEDS ORDERED: METOPROLOL TARTRATE 25 MG TABLET PO ONE (09:55)
--- NOTE | 2020-07-29 12:59 | DS ---
(1) Acute respiratory failure with hypoxia Problem: Resolved (2) Atrial fibrillation with RVR Problem: Resolved (3) Acute diastolic CHF (congestive heart failure) Problem: Resolved (4) Malnutrition Problem: Chronic Qualifiers: Malnutrition type: protein-calorie malnutrition Protein-calorie malnutrition severity: unspecified severity Qualified Code(s): E46 - Unspecified protein-calorie malnutrition (5) History of COVID-19 Problem: Chronic Date of Discharge:: 07/29/20 Hospital Course: Laura is an 85 yo female admitted for acute respiratory failure secondary to suspect acute diastolic CHF which was likely secondary to atrial fibrillation with RVR. She was given lasix and metoprolol was increased from 25mg BID to 50mg BID. She was initially placed on oxygen at 2lpm due to hypoxia of 86% in the ER, but with treatment she was weaned to room air and feeling better. She will be discharged to home with the increase in metoprolol. I do not suspect she needs lasix at this time as she did not have significant edema or pulmonary vascular congestion on chest imaging. She will follow up with Dr. Sainz. Procedures Performed: none Results and Findings: Pending Mircobiology Results 07/28/20 09:37 Blood Blood Culture - Preliminary NO GROWTH 24 HOURS 07/28/20 09:20 Blood Blood Culture - Preliminary NO GROWTH 24 HOURS Lab Pending Results 07/28/20 09:20: WBC 13.3 H, RBC 4.12 L, Hgb 11.0 L, Hct 36.3 L, MCV 88.1, MCH 26.7 L, MCHC 30.3 L, RDW 15.4 H, Plt Count 407, MPV 9.1, Immature Gran % (Auto) 0.60 H, Immature Gran # (Auto) 0.08 H, Neutrophils % 87.6 H, Lymphocytes % 4.1 L, Monocytes % 7.5, Eosinophils % 0.0, Basophils % 0.2, Nucleated RBC % 0.0, Neutrophils # 11.7 H, Lymphocytes # 0.54 L, Monocytes # 1.0, Eosinophils # 0.0, Absolute Basophils 0.0 07/28/20 09:20: Sodium 138, Plasma Sodium 138, Potassium 4.0, Chloride 100, C arbon Dioxide 30.7, Anion Gap 11.3, BUN 17, Creatinine 0.54, Est GFR (Non-Af Amer) 115, BUN/Creatinine Ratio 31.5 H, Random Glucose 117 H, Calcium 9.6, Calcium Adj for Albumin 10.8 H, Total Bilirubin 0.2, AST 24, ALT 24, Alkaline Phosphatase 126, Troponin I 0.064, Total Protein 7.0, Albumin 2.1 L, Lipase 110 07/28/20 09:20: Lactic Acid, Venous 1.5 07/28/20 09:20: Procalcitonin 0.12 07/28/20 09:37: B-Natriuretic Peptide 1288 H 07/28/20 09:37: D-Dimer 2.16 H 07/28/20 10:30: Urine Color Yellow, Urine Appearance Slightly cloudy, Urine pH 6.0, Ur Specific [place] 1.020, Urine Protein Negative, Urine Glucose (UA) Negative, Urine Ketones Negative, Urine Blood 10 H, Urine Nitrate Negative, Urine Bilirubin Negative, Urine Urobilinogen Normal, Ur Leukocyte Esterase Negative, Urine RBC 0-5, Urine WBC 0-5, Ur Epithelial Cells 0-5, Urine Bacteria Trace, Urine Culture Comments No culture indicated 07/28/20 12:09: SARS-CoV-2 (PCR) Not detected Discharge Location: Home Disposition: Home self-care Condition: Fair Discharge Activity: Activity as tolerated Discharge Diet: Low salt Referrals: Hoda Sainz DO [Primary Care Provider] - One Week Problem Oriented Discharge Instructions to Patient/Family: CHF Patient Instructions, Atrial Fibrillation, [id number] Prescriptions (Any new or edited meds): Metoprolol Tartrate [Lopressor] 50 mg PO BID #60 tab Transmission Status: Pending to [facility], [place], [place] Complete Home Medications List: Complete Home Medication List: calcium carbonate-vitamin D3 600 mg (1,500 mg)-800 unit tablet 1 tab PO DAILY 03/11/19 cholecalciferol (vitamin D3) 25 mcg (1,000 unit) capsule 1,000 unit PO DAILY 03/11/19 Metoprolol Tartrate [Lopressor] 50 mg PO BID #60 tab 07/29/20
[2020-07-29 14:57] VITALS: BP 141/79
[2020-07-29] MEDS ORDERED: METOPROLOL TARTRATE 50 MG TABLET PO SCH (21:00)
== END 2020-07-29 15:05 | disposition home or self-care (01) ==
LOC: MS 09:04 → ER 09:04 → MS 14:34
PROVIDERS: ADMIT Family Medicine; ATTEND Family Medicine

== ENCOUNTER 2020-09-28 10:50 | Inpatient (IN) ==
[2020-09-28] MEDS ORDERED: DILTIAZEM HCL 5 MG/ML VIAL IV ONE ×3 (11:05→11:28)
[2020-09-28] MEDS ORDERED: DILTIAZEM HCL 125 MG in NORMAL SALINE 100 ML IV PRN (11:28)
--- NOTE | 2020-09-28 11:30 | ERNOTE ---
Chest Pain/Cardiac HPI Date of Service: 09/28/20 Chief Complaint: Palpitations Time Seen by Provider: 09/28/20 11:05 Source: patient Exam Limitations: no limitations Immunizations: IMMUNIZATION HX Immunizations Up to Date Yes History of Influenza Vaccine Yes Hx Pneumococcal Vaccination No Allergies/Adverse Reactions: Allergies No Known Allergies Allergy (Verified 09/28/20 11:06) Home Medications: HOME MEDICATIONS calcium carbonate-vitamin D3 600 mg (1,500 mg)-800 unit tablet 1 tab PO DAILY 03/11/19 [Last Taken Unknown] cholecalciferol (vitamin D3) 25 mcg (1,000 unit) capsule 1,000 unit PO DAILY 03/11/19 [Last Taken Unknown] metoprolol tartrate 50 mg tablet 50 mg PO BID #180 tab 08/21/20 [Last Taken Unknown] Narrative: This patient is an 85-year-old female who arrived by ambulance stating that she just did not feel right. She said that she has not felt well since she had Covid in March. Her brain feels foggy. She has continually been short of breath. She has developed a productive cough but cannot say for how long. She said she was seen here about a month ago with CHF. She has not had a fever. She has no chest pain. She has been losing weight. She does not feel like her heart is racing at this time. She has a history of atrial fibrillation. She is noted to be tachycardic on the monitor. She is not lightheaded. Review of Systems - Review of Systems Constitutional: Present: weight loss Cardiology: Present: edema All Other Systems: All systems neg except as marked Medical History (Last Reviewed 09/28/20 @ 11:23 by Calvin Hernandez MD) COVID-19 (Acute) Afib (Chronic) Surgical History: Surgical History (Last Reviewed 09/28/20 @ 11:23 by Calvin Hernandez MD) Femur fracture (Chronic) October 2017 Family History: Family History (Last Reviewed 09/28/20 @ 11:23 by Calvin Hernandez MD) Other No pertinent family history Social History: (Last Reviewed 09/28/20 @ 11:23 by Calvin Hernandez MD) Social History: Marital status: / lives independently: Yes current occupational status: retired Highest level of school completed/degree received: high school graduate Service: No Tobacco: Smoking Status: Never smoker Alcohol: alcohol intake: never Substance Use: substance use type: does not use Dietary Habits: caffeine: Yes Type: coffee Physical Exam - Physical Exam General Appearance: Present: wd/wn, alert, no apparent distress Head Exam: Present: normal inspection, no evidence of injury Eye Exam: Normal inspection: bilateral Ears, Nose, Throat: Present: normal ENT inspection Neck: Present: normal inspection, other - Her head is turned towards the left.. Absent: lymphadenopathy (R), lymphadenopathy (L) Respiratory: Present: no respiratory distress, no accessory muscle use. Absent: normal breath sounds - She has noisy breath sounds throughout. Cardiovascular/Chest: Present: no murmur, tachycardia Gastrointestinal/Abdominal: Present: normal bowel sounds, nontender, nondistended, soft, no organomegaly Extremity Exam: Present: normal inspection - Kyphotic Neurological Exam: Present: alert, oriented, normal mood/affect, no motor/sensory deficits Skin Exam: Present: normal color, warm/dry Progress - Results and Orders Patient's Lab Results:: I have reviewed the patient's lab results. Results and Orders: Laboratory Tests 09/28/20 09/28/20 09/28/20 11:30 11:30 11:30 WBC 14.5 H RBC 4.69 Hgb 12.2 L Hct 41.8 MCV 89.1 MCH 26.0 L MCHC 29.2 L RDW 17.9 H Plt Count 380 MPV 9.1 Immature Gran % (Auto) 0.50 H Immature Gran # (Auto) 0.07 H Neutrophils % 84.3 H Lymphocytes % 8.0 L Monocytes % 7.0 Eosinophils % 0.0 Basophils % 0.2 Nucleated RBC % 0.0 Neutrophils # 12.2 H Lymphocytes # 1.16 L Monocytes # 1.0 Eosinophils # 0.0 Absolute Basophils 0.0 PT 11.2 H INR (Anticoag Therapy) 1.08 Sodium 138 Plasma Sodium 138 Potassium 4.3 Chloride 97 Carbon Dioxide 31.2 Anion Gap 14.1 H BUN 15 Creatinine 0.65 Est GFR (Non-Af Amer) 93 BUN/Creatinine Ratio 23.1 H Random Glucose 117 H Calcium 9.9 Calcium Adj for Albumin 11.0 H Magnesium 1.9 Total Bilirubin 0.3 AST 28 ALT 19 Alkaline Phosphatase 151 Troponin I Less than 0.017 B-Natriuretic Peptide 2443 H Total Protein 8.4 H Albumin 2.2 L TSH 4.908 H SARS-CoV-2 (PCR) 09/28/20 11:40 WBC RBC Hgb Hct MCV MCH MCHC RDW Plt Count MPV Immature Gran % (Auto) Immature Gran # (Auto) Neutrophils % Lymphocytes % Monocytes % Eosinophils % Basophils % Nucleated RBC % Neutrophils # Lymphocytes # Monocytes # Eosinophils # Absolute Basophils PT INR (Anticoag Therapy) Sodium Plasma Sodium Potassium Chloride Carbon Dioxide Anion Gap BUN Creatinine Est GFR (Non-Af Amer) BUN/Creatinine Ratio Random Glucose Calcium Calcium Adj for Albumin Magnesium Total Bilirubin AST ALT Alkaline Phosphatase Troponin I B-Natriuretic Peptide Total Protein Albumin TSH SARS-CoV-2 (PCR) Not detected - Vital Signs Patient's Vital Signs:: I have reviewed the patient's vital signs. Vital Signs: Vital Signs 09/28/20 10:59 09/28/20 11:11 09/28/20 11:14 Temperature 36 C Pulse Rate 170 H 186 H Respiratory Rate 35 H 32 H Blood Pressure 99/78 132/76 O2 Sat by Pulse Oximetry 92 L 92 L 09/28/20 11:15 Temperature Pulse Rate 168 H Respiratory Rate Blood Pressure 132/78 O2 Sat by Pulse Oximetry - EKG EKG #1 EKG read: Interp. by me EKG Comments: 11: 00 Atrial fibrillation with rapid ventricular response Rate [address] depression Compared to an EKG dated 07/28/2020, the patient was in sinus rhythm with short CA interval. Prominent T waves. EKG #2 EKG read: Interp. by me EKG Comments: 13: 35 Sinus rhythm with short CA interval Rate [address] depression Compared to the EKG done earlier today, the rate has slowed and ST depression has improved. Compared to the EKG from 07/28/2020, the T waves are not as prominent. - X-Ray X-Ray #1 X-Ray: chest Interpretation: Reviewed by me X-ray Comments: Chest Single View *~ Exam Date: 09/28/2020 12:07 Ordering Physician: Calvin Hernandez MD History: Tachycardia. Shortness of breath. Technique: Single AP view of the chest obtained. Comparison: 07/28/2020 Findings: Heart size appears within normal limits. There are bilateral mid and lower lung Field infiltrates. There are small bilateral pleural effusions. There is pleural thickening and scarring in both apices. IMPRESSION: PATCHY BILATERAL MID AND LOWER LUNG FIELD INFILTRATES WITH SMALL BILATERAL PLEURAL EFFUSIONS. Electronically signed by Shahram Fajardo M.D.. - Progress/Reassessment Chief Complaint: Palpitations Departure Clinical Impression: CHF (congestive heart failure), Atrial fibrillation with RVR - Departure Disposition: Still a patient Condition: Good Referrals: Hoda Sainz DO [Primary Care Provider] -
[2020-09-28 11:36] LABS: Hematocrit 41.8 % (37.0-47.0); Hemoglobin 12.2 gm/dL (12.5-16.0); Mean Cell Volume 89.1 fl (78-100); Mean Corpuscular Hgb Conc 29.2 g/dl (32-36); Mean Platelet Volume 9.1 fl (8-12.5); Neutrophil # 12.2 K/mm3 (1.3-6.0); Neutrophil % 84.3 % (42-75.0); Platelet Count 380 K/mm3 (150-450); Red Blood Count 4.69 M/mm3 (4.2-5.4); Red Cell Distribution Width 17.9 % (11.5-14.0); White Blood Count 14.5 K/mm3 (4.0-10.5)
[2020-09-28 11:45] LABS: Prothrombin Time (Patient) 11.2 Seconds (9.1-10.7)
[2020-09-28 11:47] LABS: INR 1.08 INR (0.92-1.08)
[2020-09-28 11:56] LABS: Troponin I Less than 0.017 ng/mL (0.00-0.10)
[2020-09-28 11:59] LABS: ALT 19 U/L (19-67); AST 28 U/L (0-48); Albumin * 2.2 gm/dl (3.4-5.0); Alkaline Phosphatase * 151 U/L (50-170); Anion Gap 14.1 mmol/L (6.8-13.8); BNP * 2443 pg/mL (5-550); BUN/Creatinine Ratio 23.1 (9.0-21.6); Bilirubin, Total 0.3 mg/dL (0.0-1.1); Blood Urea Nitrogen 15 mg/dL (3-23); Calcium * 9.9 mg/dL (7.9-10.9); Carbon Dioxide 31.2 mmol/L (24-32.6); Chloride 97 mmol/L (97-106); Glucose * 117 mg/dL (70-110); Magnesium 1.9 mg/dL (1.2-2.8); Potassium 4.3 mmol/L (3.4-4.6); Sodium 138 mmol/L (132-142); TSH * 4.908 uIU/mL (0.358-3.74); Total Protein 8.4 gm/dL (6.2-8.2)
[2020-09-28] MEDS ORDERED: FUROSEMIDE 10 MG/ML VIAL IV ONE (12:50)
[2020-09-28] MEDS ORDERED: ACETAMINOPHEN 325 MG TABLET PO ONE (13:57)
[2020-09-28 15:19] LABS: Urine Bilirubin Negative (NEGATIVE); Urine Blood Negative /ul (NEGATIVE); Urine Ketone Negative (NEGATIVE); Urine Nitrite Negative (NEGATIVE); Urine Protein Negative (NEGATIVE); Urine Urobilinogen Normal (NORMAL)
[2020-09-28 15:31] LABS: Urine Appearance Clear (CLEAR); Urine Bacteria None Seen; Urine Color Pale Yellow; Urine RBC None Seen /hpf (0-5); Urine WBC None Seen /hpf (0-5)
--- NOTE | 2020-09-28 15:49 | HP ---
Chief Complaint - Chief Complaint Date of Service: 09/28/20 Time of Service: 12:50 Chief Complaint: shortness of breath History of Present Illness: Patient with PMHx of COVID in March 2020, pulmonary hypertension presented with shortness of breath. She was hospitalized here in July with something similar, with heart failure felt to be due to uncontrolled atrial fibrillation. She was DC'd on a higher dose of 50 mg metoprolol. She has some edema, but does not want to take lasix because she would not make it to the bathroom. She been having increased weakness at home, and had significant SOB this morning. In the ED, she was rapid breathing, very shallow, and her HR was in the 160's. She also had a temp of 38.0. She denies fever, cough, nausea. There was evidence of fluid overload on her CXR and BNP elevated to 2443. Lactate initially elevated to 2.4, and procalcitonin not elevated. She was given 20 mg lasix and started on a diltiazem drip. At the time of my admission exam, her HR had improved to around 90, and she stated her breathing was much better. She is being admitted for fluid overload and management of afib with RVR. Medical History (Last Reviewed 09/28/20 @ 14:37 by Miko Blankenship RN) COVID-19 (Acute) Afib (Chronic) Surgical History: Surgical History (Last Reviewed 09/28/20 @ 14:37 by Miko Blankenship RN) Femur fracture (Chronic) October 2017 Family History: Family History (Last Reviewed 09/28/20 @ 14:37 by Miko Blankenship RN) Other No pertinent family history Social History: (Last Reviewed 09/28/20 @ 14:37 by Miko Blankenship RN) Social History: Marital status: / lives independently: Yes current occupational status: retired Highest level of school completed/degree received: high school graduate Service: No Tobacco: Smoking Status: Never smoker Alcohol: alcohol intake: never Substance Use: substance use type: does not use Dietary Habits: caffeine: Yes Type: coffee Review Of Systems (GEN) - Review of Systems Generalized/Overall Review: Absent: Fever EENTM: Present: Nose Congestion, Other - sinus drainage Respiratory: Present: Shortness of Breath. Absent: Cough Cardiac: Present: Edema. Absent: Chest Pain Abdominal: Present: Other - decreased appetite. Absent: Nausea Genitourinary: Present: No Symptoms Reported Musculoskeletal: Present: No Symptoms Reported Immunizations: IMMUNIZATION HX Immunizations Up to Date Yes History of Influenza Vaccine Yes Hx Pneumococcal Vaccination No Allergies/Adverse Reactions: Allergies Allergy/AdvReac Type Severity Reaction Status Date / Time No Known Allergies Allergy Verified 09/28/20 14:37 Home Medications: HOME MEDICATIONS metoprolol tartrate 50 mg tablet 50 mg PO BID #180 tab 08/21/20 [Last Taken Unknown] Exam - Exam Vital Signs: Vital Signs - Last Taken Temp 36.7 C 09/28/20 14:39 Pulse 81 09/28/20 14:39 Resp 26 H 09/28/20 14:39 BP 125/58 09/28/20 14:39 Pulse Ox 92 L 09/28/20 14:39 Constitutional: Present: Alert, Cooperative, No distress, Elderly ENT Exam: Present: other - head tilted to the right, limited ROM Respiratory: Present: no accessory muscle use, rales - right greater than left. Absent: wheezing Cardiovascular/Chest: Present: regular rate, rhythm Abdomen: Present: soft, nontender Extremity: Present: lower extremity edema - 3+ bilaterally Eye contact: Present: cooperative, good eye contact Diagnostic Studies: Abnormal Lab Results 09/28/20 09/28/20 09/28/20 Range/Units 11:30 11:30 11:30 WBC 14.5 H (4.0-10.5) K/mm3 Hgb 12.2 L (12.5-16.0) gm/dL MCH 26.0 L (27-31) pg MCHC 29.2 L (32-36) g/dl RDW 17.9 H (11.5-14.0) % Immature Gran % (Auto) 0.50 H (0.001-0.429) % Immature Gran # (Auto) 0.07 H (0.000-0.0310) K/mm3 Neutrophils % 84.3 H (42-75.0) % Lymphocytes % 8.0 L (20-51) % Neutrophils # 12.2 H (1.3-6.0) K/mm3 Lymphocytes # 1.16 L (1.5-3.5) k/mm3 PT 11.2 H (9.1-10.7) Seconds Anion Gap 14.1 H (6.8-13.8) mmol/L BUN/Creatinine Ratio 23.1 H (9.0-21.6) Random Glucose 117 H (70-110) mg/dL Lactic Acid, Venous (0.4-2.0) mmol/L Calcium Adj for Albumin 11.0 H (8.4-10.2) mg/dL B-Natriuretic Peptide 2443 H (5-550) pg/mL Total Protein 8.4 H (6.2-8.2) gm/dL Albumin 2.2 L (3.4-5.0) gm/dl Procalcitonin (0.05-0.50) ng/mL TSH 4.908 H (0.358-3.74) uIU/mL 09/28/20 09/28/20 Range/Units 11:30 11:30 WBC (4.0-10.5) K/mm3 Hgb (12.5-16.0) gm/dL MCH (27-31) pg MCHC (32-36) g/dl RDW (11.5-14.0) % Immature Gran % (Auto) (0.001-0.429) % Immature Gran # (Auto) (0.000-0.0310) K/mm3 Neutrophils % (42-75.0) % Lymphocytes % (20-51) % Neutrophils # (1.3-6.0) K/mm3 Lymphocytes # (1.5-3.5) k/mm3 PT (9.1-10.7) Seconds Anion Gap (6.8-13.8) mmol/L BUN/Creatinine Ratio (9.0-21.6) Random Glucose (70-110) mg/dL Lactic Acid, Venous 2.4 H* (0.4-2.0) mmol/L Calcium Adj for Albumin (8.4-10.2) mg/dL B-Natriuretic Peptide (5-550) pg/mL Total Protein (6.2-8.2) gm/dL Albumin (3.4-5.0) gm/dl Procalcitonin Less than 0.05 L (0.05-0.50) ng/mL TSH (0.358-3.74) uIU/mL Laboratory Results WBC 14.5 K/mm3 (4.0-10.5) H 09/28/20 11:30 RBC 4.69 M/mm3 (4.2-5.4) 09/28/20 11:30 Hgb 12.2 gm/dL (12.5-16.0) L 09/28/20 11:30 Hct 41.8 % (37.0-47.0) 09/28/20 11:30 MCV 89.1 fl (78-100) 09/28/20 11:30 MCH 26.0 pg (27-31) L 09/28/20 11:30 MCHC 29.2 g/dl (32-36) L 09/28/20 11:30 RDW 17.9 % (11.5-14.0) H 09/28/20 11:30 Plt Count 380 K/mm3 (150-450) 09/28/20 11:30 MPV 9.1 fl (8-12.5) 09/28/20 11:30 Immature Gran % (Auto) 0.50 % (0.001-0.429) H 09/28/20 11:30 Immature Gran # (Auto) 0.07 K/mm3 (0.000-0.0310) H 09/28/20 11:30 Neutrophils % 84.3 % (42-75.0) H 09/28/20 11:30 Lymphocytes % 8.0 % (20-51) L 09/28/20 11:30 Monocytes % 7.0 % (0.0-9) 09/28/20 11:30 Eosinophils % 0.0 % (0.0-3.0) 09/28/20 11:30 Basophils % 0.2 % (0.0-1.0) 09/28/20 11:30 Nucleated RBC % 0.0 k/mm3 (0-1) 09/28/20 11:30 Neutrophils # 12.2 K/mm3 (1.3-6.0) H 09/28/20 11:30 Lymphocytes # 1.16 k/mm3 (1.5-3.5) L 09/28/20 11:30 Monocytes # 1.0 k/mm3 (0.0-1.0) 09/28/20 11:30 Eosinophils # 0.0 k/mm3 (0.0-0.7) 09/28/20 11:30 Absolute Basophils 0.0 k/mm3 (0.0-0.1) 09/28/20 11:30 PT 11.2 Seconds (9.1-10.7) H 09/28/20 11:30 INR (Anticoag Therapy) 1.08 INR (0.92-1.08) 09/28/20 11:30 Sodium 138 mmol/L (132-142) 09/28/20 11:30 Plasma Sodium 138 mmol/L (130-142) 09/28/20 11:30 Potassium 4.3 mmol/L (3.4-4.6) 09/28/20 11:30 Chloride 97 mmol/L (97-106) 09/28/20 11:30 Carbon Dioxide 31.2 mmol/L (24-32.6) 09/28/20 11:30 Anion Gap 14.1 mmol/L (6.8-13.8) H 09/28/20 11:30 BUN 15 mg/dL (3-23) 09/28/20 11:30 Creatinine 0.65 mg/dL (0.4-1.4) 09/28/20 11:30 Est GFR (Non-Af Amer) 93 mL/min (60-130) 09/28/20 11:30 BUN/Creatinine Ratio 23.1 (9.0-21.6) H 09/28/20 11:30 Random Glucose 117 mg/dL (70-110) H 09/28/20 11:30 Lactic Acid, Venous 1.7 mmol/L (0.4-2.0) 09/28/20 15:00 Calcium 9.9 mg/dL (7.9-10.9) 09/28/20 11:30 Calcium Adj for Albumin 11.0 mg/dL (8.4-10.2) H 09/28/20 11:30 Magnesium 1.9 mg/dL (1.2-2.8) 09/28/20 11:30 Total Bilirubin 0.3 mg/dL (0.0-1.1) 09/28/20 11:30 AST 28 U/L (0-48) 09/28/20 11:30 ALT 19 U/L (19-67) 09/28/20 11:30 Alkaline Phosphatase 151 U/L (50-170) 09/28/20 11:30 Troponin I Less than 0.017 ng/mL (0.00-0.10) 09/28/20 11:30 B-Natriuretic Peptide 2443 pg/mL (5-550) H 09/28/20 11:30 Total Protein 8.4 gm/dL (6.2-8.2) H 09/28/20 11:30 Albumin 2.2 gm/dl (3.4-5.0) L 09/28/20 11:30 Procalcitonin Less than 0.05 ng/mL (0.05-0.50) L 09/28/20 11:30 TSH 4.908 uIU/mL (0.358-3.74) H 09/28/20 11:30 Urine Color Pale yellow 09/28/20 14:35 Urine Appearance Clear (CLEAR) 09/28/20 14:35 Urine pH 6.0 pH (5.0-7.0) 09/28/20 14:35 Ur Specific [place] 1.010 SP.GR. (1.005-1.010) 09/28/20 14:35 Urine Protein Negative mg/dL (NEGATIVE) 09/28/20 14:35 Urine Glucose (UA) Negative mg/dL (NEGATIVE) 09/28/20 14:35 Urine Ketones Negative mg/dL (NEGATIVE) 09/28/20 14:35 Urine Blood Negative /ul (NEGATIVE) 09/28/20 14:35 Urine Nitrate Negative (NEGATIVE) 09/28/20 14:35 Urine Bilirubin Negative mg/dl (NEGATIVE) 09/28/20 14:35 Urine Urobilinogen Normal EU/dl (NORMAL) 09/28/20 14:35 Ur Leukocyte Esterase Negative /ul (NEGATIVE) 09/28/20 14:35 Urine RBC None seen /hpf (0-5) 09/28/20 14:35 Urine WBC None seen /hpf (0-5) 09/28/20 14:35 Ur Epithelial Cells None seen /hpf (0-5) 09/28/20 14:35 Urine Bacteria None seen (NONE) 09/28/20 14:35 Urine Culture Comments No culture indicated 09/28/20 14:35 SARS-CoV-2 (PCR) Not detected (NotDetected) 09/28/20 11:40 Assessment/Plan - Narrative Narrative: Her fluid overload is likely due to her afib with RVR. She had a recent echo, and did not have heart failure. Her EF was 50-60%, but her RVSP was 57, so she has pulmonary hypertension. Will need to verify that she was taking her prescribed metoprolol, and if yes, will discuss changing to diltiazem at DC, to prevent recurrence. Will also need to discuss anticoagulation. She feels better after receiving IV lasix, and will repeat again in the morning. She had a temp, but her procalcitonin is not elevated, and she denies cough. Pneumonia less likely. UA is pending, but she did not report urinary complaints to me. Will monitor her response to the lasix and wean oxygen and IV diltiazem. Will restart home metoprolol. If she feels comfortable, DC home could happen as soon as tomorrow. She confirmed she is DNR/DNI. - Assessment/Plan (1) Atrial fibrillation with RVR Problem: Acute (2) Fluid overload Problem: Acute (3) Paroxysmal atrial fibrillation Assessment: Her afib resolved during her last admission, and again today. Will need to discuss anticoagulation. Problem: Chronic (4) History of COVID-19 Problem: Chronic (5) Hypoxia Assessment: Likely due to her tachycardia. Wean as tolerated. Problem: Acute (6) Malnutrition Assessment: She now lives alone, since the loss of her last March. she has [facility] helping her currently. Problem: Chronic Qualifiers: Malnutrition type: protein-calorie malnutrition Protein-calorie malnutrition severity: unspecified severity Qualified Code(s): E46 - Unspecified protein-calorie malnutrition
[2020-09-28] MEDS: METOPROLOL TARTRATE 50 MG TABLET PO SCH ×2 (17:49→20:15)
[2020-09-29] MEDS: METOPROLOL TARTRATE 50 MG TABLET PO SCH ×2 (08:51→20:28)
[2020-09-29] MEDS: FUROSEMIDE 10 MG/ML VIAL IV ONE (08:54)
--- NOTE | 2020-09-29 11:35 | PN ---
Subjective - Date and Time Seen Date: 09/29/20 Time: 11:35 Subjective Narrative: She is feeling better this morning, but still requiring oxygen. The diltiazem drip was stopped yesterday afternoon, and her HR has been less than 100. She feels like her strength is improving as the day goes on. She is now also willing to have lasix available at home, since when it was given here, she did not have to zurita to the bathroom. Objective - Review of Systems Generalized/Overall Review: Denies: Fever Respiratory: Reports: Shortness of Breath. Denies: Cough Cardiac: Reports: Edema - improving. Denies: Chest Pain Abdominal: Reports: No Symptoms Reported Genitourinary Symptoms: Reports: No Symptoms Reported - Vitals Vitals: Last Vital Signs Temp 36.3 C 09/29/20 10:35 Pulse 75 09/29/20 10:35 Resp 18 09/29/20 10:35 BP 138/68 09/29/20 10:35 Pulse Ox 99 09/29/20 10:35 - Abnormal Lab Findings Abnormal Lab Findings: Abnormal Lab Results 09/28/20 09/28/20 09/28/20 Range/Units 11:30 11:30 11:30 WBC 14.5 H (4.0-10.5) K/mm3 Hgb 12.2 L (12.5-16.0) gm/dL MCH 26.0 L (27-31) pg MCHC 29.2 L (32-36) g/dl RDW 17.9 H (11.5-14.0) % Immature Gran % (Auto) 0.50 H (0.001-0.429) % Immature Gran # (Auto) 0.07 H (0.000-0.0310) K/mm3 Neutrophils % 84.3 H (42-75.0) % Lymphocytes % 8.0 L (20-51) % Neutrophils # 12.2 H (1.3-6.0) K/mm3 Lymphocytes # 1.16 L (1.5-3.5) k/mm3 PT 11.2 H (9.1-10.7) Seconds Anion Gap 14.1 H (6.8-13.8) mmol/L BUN/Creatinine Ratio 23.1 H (9.0-21.6) Random Glucose 117 H (70-110) mg/dL Lactic Acid, Venous (0.4-2.0) mmol/L Calcium Adj for Albumin 11.0 H (8.4-10.2) mg/dL B-Natriuretic Peptide 2443 H (5-550) pg/mL Total Protein 8.4 H (6.2-8.2) gm/dL Albumin 2.2 L (3.4-5.0) gm/dl Procalcitonin (0.05-0.50) ng/mL TSH 4.908 H (0.358-3.74) uIU/mL 09/28/20 09/28/20 Range/Units 11:30 11:30 WBC (4.0-10.5) K/mm3 Hgb (12.5-16.0) gm/dL MCH (27-31) pg MCHC (32-36) g/dl RDW (11.5-14.0) % Immature Gran % (Auto) (0.001-0.429) % Immature Gran # (Auto) (0.000-0.0310) K/mm3 Neutrophils % (42-75.0) % Lymphocytes % (20-51) % Neutrophils # (1.3-6.0) K/mm3 Lymphocytes # (1.5-3.5) k/mm3 PT (9.1-10.7) Seconds Anion Gap (6.8-13.8) mmol/L BUN/Creatinine Ratio (9.0-21.6) Random Glucose (70-110) mg/dL Lactic Acid, Venous 2.4 H* (0.4-2.0) mmol/L Calcium Adj for Albumin (8.4-10.2) mg/dL B-Natriuretic Peptide (5-550) pg/mL Total Protein (6.2-8.2) gm/dL Albumin (3.4-5.0) gm/dl Procalcitonin Less than 0.05 L (0.05-0.50) ng/mL TSH (0.358-3.74) uIU/mL - Exam Constitutional: Present: Alert, No distress, Elderly ENT Exam: Present: other - head tilted to right Respiratory: Present: lungs clear, normal breath sounds Cardiovascular/Chest: Present: regular rate, rhythm Abdomen: Present: soft, nontender Extremity: Present: lower extremity edema - 2+ bilaterally to the knee, improved from yesterday Eye contact: Present: cooperative, good eye contact Assessment/Plan Plan Narrative: Her heart rate and rhythm are now normal after being given IV cardizem for about 6 hours. She is now on her home 50 mg metoprolol. She had a similar presentation earlier this year, that also resolved fairly quickly. This was felt to be due to fluid overload. She had been reluctant to take fluid pills at home, because she is unable to ambulate quickly, and was worried about making it to the bathroom. She tolerated lasix well while here, and did not have increased urinary urgency. She now agrees to having 20 mg tablets of lasix at home, to avoid further episodes of fluid overload. Discussed risks vs benefits of anticoagulation, and she declines at this time, knowing it is used to prevent stroke in afib. She does not want increased risk of bleeding. She is still using 2 L O2, which she doesn't use at home. Likely due to fluid, and will wean to room air as tolerated. Will keep her here an additional night to wean off oxygen, after additional IV lasix this morning. She feels comfortable going home after DC, and has [facility] available to her. - Problems/Diagnosis (1) Fluid overload Problem: Acute (2) Atrial fibrillation with RVR Problem: Resolved (3) Paroxysmal atrial fibrillation Problem: Chronic (4) History of COVID-19 Problem: Chronic (5) Hypoxia Problem: Acute (6) Malnutrition Problem: Chronic Qualifiers: Malnutrition type: protein-calorie malnutrition Protein-calorie malnutrition severity: unspecified severity Qualified Code(s): E46 - Unspecified protein-calorie malnutrition
[2020-09-30] MEDS: METOPROLOL TARTRATE 50 MG TABLET PO SCH (08:14)
[2020-09-30] MEDS ORDERED: METOPROLOL TARTRATE 1 MG/ML AMPUL IV ONE (08:18)
[2020-09-30] MEDS ORDERED: FUROSEMIDE 10 MG/ML VIAL IV ONE (08:20)
--- NOTE | 2020-09-30 08:27 | PN ---
Subjective - Date and Time Seen Date: 09/30/20 Time: 08:19 Subjective Narrative: She is having sudden tachycardia again this morning. She didn't have a good night - had a coughing spell from upper respiratory drainage. Still feels weak. Weaned off oxygen yesterday afternoon. Objective - Review of Systems Generalized/Overall Review: Reports: Weakness EENTM: Reports: Other - sinus congestion Respiratory: Reports: Shortness of Breath Cardiac: Reports: Edema. Denies: Chest Pain Abdominal: Denies: Vomiting Genitourinary Symptoms: Reports: No Symptoms Reported - Vitals Vitals: Last Vital Signs Temp 36.9 C 09/30/20 07:00 Pulse 80 09/30/20 08:14 Resp 14 09/30/20 07:00 BP 148/63 09/30/20 08:14 Pulse Ox 93 09/30/20 07:00 - Exam Constitutional: Present: Alert, Elderly, Thin and frail Respiratory: Present: crackles, other - tachypnea Cardiovascular/Chest: Present: tachycardia Abdomen: Present: nontender Extremity: Present: lower extremity edema - 2+ left lower extremity, 1+ right lower extremity, not significantly changed from yesterday Neurologic: Present: alert Assessment/Plan Plan Narrative: She again is tachycardic this morning, occurring about 5 minutes prior to my assessment. Appears sinus tachy on the monitor, but EKG pending. She is more tachypneic on exam. Will give 5 mg IV lopressor and 20 mg IV lasix. If insufficient response, will give IV cardizem. She had weaned off oxygen, but anticipate she may develop hypoxia again with this tachycardia. She had not yet received her po metoprolol this morning. She has not fully recovered from her COVID infection in March. Will recommend pulmonology consult after DC. - Problems/Diagnosis (1) Tachycardia Problem: Acute (2) Fluid overload Problem: Acute (3) Atrial fibrillation with RVR Problem: Resolved (4) Paroxysmal atrial fibrillation Problem: Chronic Narrative: Declines anticoagulation due to increased bleeding risk. (5) History of COVID-19 Problem: Chronic (6) Hypoxia Problem: Resolved (7) Malnutrition Problem: Chronic Qualifiers: Malnutrition type: protein-calorie malnutrition Protein-calorie malnutrition severity: unspecified severity Qualified Code(s): E46 - Unspecified protein-calorie malnutrition
[2020-09-30] MEDS: FUROSEMIDE 10 MG/ML VIAL IV ONE (08:53)
[2020-09-30] MEDS: DILTIAZEM HCL 5 MG/ML VIAL IV PRN (09:08)
--- NOTE | 2020-09-30 10:32 | PN ---
Progess Note - Interim Date: 09/30/20 Time: 10:15 Narrative: 09/30/20 10:32 EKG verified that her heart rhythm was again afib with RVR, with a rate in the 150's. She did not improve after 5 mg IV lopressor or 5 mg IV cardizem, so will restart the cardizem drip. She did get her po metoprolol this morning. Will plan on transitioning to po cardizem to see if this offers better rate control than po metoprolol. 09/30/20 10:32
[2020-09-30] MEDS ORDERED: FUROSEMIDE 20 MG TABLET PO PRN (11:00)
[2020-09-30] MEDS: ENOXAPARIN SODIUM 30 MG/0.3 ML SYRG SC SCH (11:13)
[2020-09-30] MEDS: DILTIAZEM HCL 125 MG in NORMAL SALINE 100 ML IV PRN ×2 (12:15→19:57)
[2020-09-30] MEDS: DILTIAZEM HCL 30 MG TABLET PO SCH (17:04)
[2020-10-01] MEDS: DILTIAZEM HCL 30 MG TABLET PO SCH ×3 (01:22→09:23)
--- NOTE | 2020-10-01 09:51 | PN ---
Subjective - Date and Time Seen Date: 10/01/20 Time: 09:50 Subjective Narrative: Patient again required the diltiazem drip yesterday for several hours, after her HR increased to the 160's despite her home metoprolol. She was given IV doses of lopressor and cardizem, but failed to respond to these. She converted to sinus rhythm last evening. On my exam this morning, she reports feeling "funny" like her heart is pounding. She also has not regained strength. Objective - Review of Systems Generalized/Overall Review: Reports: Weakness. Denies: Fever Respiratory: Reports: Shortness of Breath. Denies: Cough Cardiac: Reports: Edema. Denies: Chest Pain Abdominal: Reports: No Symptoms Reported Genitourinary Symptoms: Reports: No Symptoms Reported - Vitals Vitals: Last Vital Signs Temp 36.8 C 10/01/20 07:14 Pulse 95 10/01/20 07:52 Resp 35 H 10/01/20 07:14 BP 148/62 10/01/20 07:52 Pulse Ox 93 10/01/20 07:14 - Exam Constitutional: Present: Alert, Cooperative, No distress, Elderly, Thin and frail ENT Exam: Present: other - head tilted to left, turned to right Respiratory: Present: lungs clear, no respiratory distress Cardiovascular/Chest: Present: other - borderline tachycardic - around 100 BPM, regular Abdomen: Present: soft Extremity: Present: lower extremity edema - 1+ bilaterally, left greater than right Eye contact: Present: cooperative, good eye contact Assessment/Plan Plan Narrative: She is going in and out of afib, and has required a diltiazem drip twice during this hospitalization. Her home 50 mg metoprolol bid has been changed to 30 mg cardizem q8h, to see if this will keep her in sinus rhythm. At the time of my exam, her HR is increased to 100, and I have concerns she may again flip into afib. Will increase her cardizem dose to 60 mg tid. She will remain hospitalized at least one additional midnight to make sure she tolerates this medication, and does not again revert to afib with RVR. Will order cardiology referral with DC orders. Discussed risks vs benefits of anticoagulation, and she is aware of the increased risk of stroke, but would like to avoid the increased risk of bleeding, so she declines anticoagulation. OK to continue lovenox while hospitalized. I do not believe she has heart failure. I believe her fluid overload was due to her uncontrolled heart rate. She did not have signs of heart failure on echo done last month. - Problems/Diagnosis (1) Paroxysmal atrial fibrillation Problem: Chronic (2) Tachycardia Problem: Acute (3) Fluid overload Problem: Acute (4) Atrial fibrillation with RVR Problem: Resolved (5) History of COVID-19 Problem: Chronic (6) Hypoxia Problem: Resolved (7) Malnutrition Problem: Chronic Qualifiers: Malnutrition type: protein-calorie malnutrition Protein-calorie malnutrition severity: unspecified severity Qualified Code(s): E46 - Unspecified protein-calorie malnutrition
[2020-10-01] MEDS ORDERED: DILTIAZEM HCL 30 MG TABLET PO ONE (10:00)
[2020-10-01] MEDS: ENOXAPARIN SODIUM 30 MG/0.3 ML SYRG SC SCH (10:30)
[2020-10-01] MEDS: DILTIAZEM HCL 60 MG TABLET PO SCH (15:35)
[2020-10-02] MEDS: DILTIAZEM HCL 60 MG TABLET PO SCH ×2 (00:21→08:08)
[2020-10-02] MEDS: DILTIAZEM HCL 5 MG/ML VIAL IV PRN (01:41)
[2020-10-02] MEDS ORDERED: METOPROLOL TARTRATE 1 MG/ML AMPUL IV PRN (02:24)
[2020-10-02] MEDS ORDERED: DILTIAZEM HCL 125 MG in NORMAL SALINE 100 ML IV PRN (02:25)
[2020-10-02] MEDS: AMIODARONE HCL 200 MG TABLET PO SCH ×2 (06:43→08:07)
[2020-10-02 08:04] LABS: Hematocrit 37.3 % (37.0-47.0); Hemoglobin 10.9 gm/dL (12.5-16.0); Mean Cell Volume 89.7 fl (78-100); Mean Corpuscular Hemoglobin 26.2 pg (27-31); Mean Corpuscular Hgb Conc 29.2 g/dl (32-36); Mean Platelet Volume 9.4 fl (8-12.5); Neutrophil # 8.3 K/mm3 (1.3-6.0); Neutrophil % 75.6 % (42-75.0); Platelet Count 301 K/mm3 (150-450); Red Blood Count 4.16 M/mm3 (4.2-5.4); Red Cell Distribution Width 17.9 % (11.5-14.0)
--- NOTE | 2020-10-02 08:13 | PN ---
Subjective - Date and Time Seen Date: 10/02/20 Time: 08:13 Subjective Narrative: Patient again went into afib with RVR, rate in the 150's early this morning. She converted to sinus after 5 mg IV lopressor and 10 mg IV cardizem. She has more energy and strength this morning. Objective - Review of Systems Generalized/Overall Review: Reports: Weakness. Denies: Fever Respiratory: Reports: Shortness of Breath - baseline Cardiac: Reports: Edema Abdominal: Reports: No Symptoms Reported Genitourinary Symptoms: Reports: No Symptoms Reported - Vitals Vitals: Last Vital Signs Temp 37.2 C 10/02/20 06:32 Pulse 90 10/02/20 08:08 Resp 20 10/02/20 06:32 BP 128/68 10/02/20 08:08 Pulse Ox 91 L 10/02/20 06:32 - Abnormal Lab Findings Abnormal Lab Findings: Abnormal Lab Results 10/02/20 Range/Units 07:45 WBC 11.0 H (4.0-10.5) K/mm3 RBC 4.16 L (4.2-5.4) M/mm3 Hgb 10.9 L (12.5-16.0) gm/dL MCH 26.2 L (27-31) pg MCHC 29.2 L (32-36) g/dl RDW 17.9 H (11.5-14.0) % Immature Gran % (Auto) 0.50 H (0.001-0.429) % Immature Gran # (Auto) 0.06 H (0.000-0.0310) K/mm3 Neutrophils % 75.6 H (42-75.0) % Lymphocytes % 16.3 L (20-51) % Neutrophils # 8.3 H (1.3-6.0) K/mm3 - Exam Constitutional: Present: Alert, Cooperative, No distress, Elderly Respiratory: Present: lungs clear, no respiratory distress Cardiovascular/Chest: Present: regular rate, rhythm Abdomen: Present: nontender Extremity: Present: lower extremity edema - 2+ bilateral, similar to yesterday Eye contact: Present: cooperative, good eye contact Assessment/Plan Plan Narrative: She again flipped into afib with RVR overnight. Metoprolol was changed to 60 mg cardizem q8h yesterday, in the hopes her afib would not recur, but this was not successful. Amiodarone was started this morning at 6 am. Her case was discussed with [facility] retail client solutions consultant cardiology, who recommended 80 mg sotalol bid, to start this afternoon. Will DC amiodarone. Will monitor her QT. She feels like her strength is increasing, and seems more energetic this morning. If her HR remains controlled, she could potentially DC tomorrow. She would like to talk with her [id number] to help determine if she will go home after DC, or if a facility would be more appropriate. - Problems/Diagnosis (1) Paroxysmal atrial fibrillation Problem: Chronic (2) Tachycardia Problem: Acute (3) Fluid overload Problem: Acute (4) Atrial fibrillation with RVR Problem: Resolved (5) History of COVID-19 Problem: Chronic (6) Hypoxia Problem: Resolved (7) Malnutrition Problem: Chronic Qualifiers: Malnutrition type: protein-calorie malnutrition Protein-calorie malnutri tion severity: unspecified severity Qualified Code(s): E46 - Unspecified protein-calorie malnutrition
[2020-10-02 08:22] LABS: Albumin * 1.8 gm/dl (3.4-5.0); Anion Gap 8.6 mmol/L (6.8-13.8); BUN/Creatinine Ratio 28.3 (9.0-21.6); Bilirubin, Total 0.2 mg/dL (0.0-1.1); Ca. Corrected For Albumin 10.5 mg/dL (8.4-10.2); Calcium * 9.1 mg/dL (7.9-10.9); Carbon Dioxide 30.7 mmol/L (24-32.6); Potassium 4.3 mmol/L (3.4-4.6); Total Protein 7.4 gm/dL (6.2-8.2)
[2020-10-02] MEDS: FUROSEMIDE 20 MG TABLET PO SCH (11:29)
[2020-10-02] MEDS: ENOXAPARIN SODIUM 30 MG/0.3 ML SYRG SC SCH (11:29)
[2020-10-02] MEDS: SOTALOL HCL 80 MG TABLET PO SCH (15:43)
[2020-10-03] MEDS: SOTALOL HCL 80 MG TABLET PO SCH ×2 (04:03→15:39)
[2020-10-03] MEDS: FUROSEMIDE 20 MG TABLET PO SCH (11:55)
[2020-10-03] MEDS: ENOXAPARIN SODIUM 30 MG/0.3 ML SYRG SC SCH (11:55)
--- NOTE | 2020-10-03 12:22 | PN ---
Subjective - Date and Time Seen Date: 10/03/20 Time: 08:05 Subjective Narrative: She will have elevated respirations, but does not appear labored. Will breath shallowly and rapidly. She has concerns regarding how long to monitor her response to the new medication prior to DC. Objective - Review of Systems Generalized/Overall Review: Reports: Weakness, Fatigue Respiratory: Denies: Shortness of Breath Cardiac: Denies: Chest Pain, Edema Abdominal: Reports: No Symptoms Reported Genitourinary Symptoms: Reports: No Symptoms Reported - Vitals Vitals: Last Vital Signs Temp 37.1 C 10/03/20 10:55 Pulse 73 10/03/20 11:55 Resp 21 H 10/03/20 10:55 BP 97/40 10/03/20 11:55 Pulse Ox 98 10/03/20 10:55 - Exam Constitutional: Present: Alert, Oriented x3, Cooperative, No distress, Elderly, Thin and frail Respiratory: Present: lungs clear, normal breath sounds, no respiratory distress, other - room air Cardiovascular/Chest: Present: regular rate, rhythm Abdomen: Present: Normal bowel sounds. Absent: tender Extremity: Absent: lower extremity edema Eye contact: Present: cooperative, good eye contact Assessment/Plan Plan Narrative: Hospitalization day #6 for paroxysmal afib. She went into afib with RVR despite 50 mg metoprolol bid, resulting in her admission. This was changed to cardizem, but she again went into afib with RVR during this admission. Discussed her case with the on-call debarker operator at [facility] yesterday, who recommended starting 80 mg sotalol bid. Her BP was low this morning, but improved this afternoon. Laura has declined anticoagulation due to increased bleeding risk, but will revisit this periodically. She is not having edema today so will continue daily 20 mg lasix. Echo did not show signs of heart failure, but did show pulmonary hypertension. Without fever or cough, and a negative procalcitonin, pneumonia unlikely. She has not been given antibiotics and her WBC has improved, further reducing the likelihood of pneumonia. The mild elevated in WBC on admission was likely due to her highly elevated heart rate and acute stress reaction. She is very frail, and lives alone since her in March from COVID. Her mobility is limited and she has difficulty getting her meals. Her BMI is only 14. She is at risk for further hospitalizations. She agrees to care home placement after DC, and very much appreciate case management assistance in getting this arranged. - Problems/Diagnosis (1) Paroxysmal atrial fibrillation Problem: Chronic (2) Tachycardia Problem: Resolved (3) Fluid overload Problem: Resolved (4) Atrial fibrillation with RVR Problem: Resolved (5) History of COVID-19 Problem: Chronic (6) Hypoxia Problem: Resolved (7) Malnutrition Problem: Chronic Qualifiers: Malnutrition type: protein-calorie malnutrition Protein-calorie malnutrition severity: unspecified severity Qualified Code(s): E46 - Unspecified protein-calorie malnutrition (8) Pulmonary hypertension Problem: Chronic
[2020-10-04] MEDS: SOTALOL HCL 80 MG TABLET PO SCH ×2 (03:48→15:57)
--- NOTE | 2020-10-04 08:17 | PN ---
Subjective - Date and Time Seen Date: 10/04/20 Time: 08:14 Subjective Narrative: She reports feeling a bit stronger than yesterday, but would like to regain yet more strength. She has not fully recovered from COVID in March. She has had tachypnea since then, which is not likely to completely resolve. She has not had afib with RVR in 48 hours. Objective - Review of Systems Generalized/Overall Review: Reports: Weakness Respiratory: Denies: Cough Cardiac: Denies: Chest Pain Abdominal: Reports: No Symptoms Reported Genitourinary Symptoms: Reports: No Symptoms Reported Musculoskeletal Complaints: Reports: No Symptoms Reported - Vitals Vitals: Last Vital Signs Temp 37 C 10/04/20 07:03 Pulse 72 10/04/20 07:03 Resp 38 H 10/04/20 07:03 BP 160/74 H 10/04/20 07:03 Pulse Ox 96 10/04/20 07:03 - Exam Constitutional: Present: Alert, Cooperative, No distress, Elderly, Thin and frail Respiratory: Present: lungs clear, other - tachypnea, her baseline Cardiovascular/Chest: Present: regular rate, rhythm Abdomen: Present: nontender Extremity: Absent: lower extremity edema Eye contact: Present: cooperative, good eye contact Assessment/Plan Plan Narrative: HR has been controlled with sotalol, and she has maximined her benefit from hospitalization. She is declining anticoagulation due to increased bleeding risk. She is very frail since her COVID infection in March, and I have concerns for her returning home after DC resulting in further hospitalizations. She worked with PT, and had unstable gait and unsteadiness, and SNF recommended. She agrees to NH placement, and appreciate case management assistance with this. WBC resolved without antibiotics. I believe her elevated WBC was due to afib with RVR, and highly elevated HR. WBC was 11.0 yesterday, which is within the limits of normal. - Problems/Diagnosis (1) Paroxysmal atrial fibrillation Problem: Chronic (2) Tachycardia Problem: Resolved (3) Fluid overload Problem: Resolved (4) Atrial fibrillation with RVR Problem: Resolved (5) History of COVID-19 Problem: Chronic (6) Hypoxia Problem: Resolved (7) Malnutrition Problem: Chronic Qualifiers: Malnutrition type: protein-calorie malnutrition Protein-calorie malnutrition severity: unspecified severity Qualified Code(s): E46 - Unspecified protein-calorie malnutrition (8) Pulmonary hypertension Problem: Chronic
[2020-10-04] MEDS: FUROSEMIDE 20 MG TABLET PO SCH (11:53)
[2020-10-04] MEDS: ENOXAPARIN SODIUM 30 MG/0.3 ML SYRG SC SCH (11:53)
--- NOTE | 2020-10-04 15:01 | DS ---
(1) Paroxysmal atrial fibrillation Problem: Chronic (2) Tachycardia Problem: Resolved (3) Fluid overload Problem: Resolved (4) Atrial fibrillation with RVR Problem: Resolved (5) History of COVID-19 Problem: Chronic (6) Hypoxia Problem: Resolved (7) Malnutrition Problem: Chronic Qualifiers: Malnutrition type: protein-calorie malnutrition Protein-calorie malnutrition severity: unspecified severity Qualified Code(s): E46 - Unspecified protein-calorie malnutrition (8) Pulmonary hypertension Problem: Chronic Date of Discharge:: 10/04/20 Hospital Course: Patient with PMHx of COVID in March 2020, pulmonary hypertension presented with shortness of breath and was in afib with RVR, with a HR around 160. This was the second time this has happened in the last few months. She was hospitalized here in July with something similar, with heart failure felt to be due to uncontrolled atrial fibrillation. It is unclear if extra fluid causes the afib with RVR or the afib causes the fluid overload. Echo earlier this year did not reveal heart failure. At that time, she was DC'd on a higher dose of 50 mg metoprolol. She'd been taking the metoprolol, but still went into afib with RVR. She converted fairly quickly with the diltiazem drip, but again went into afib with RVR on diltiazem. The on-call solar process engineer recommended 80 mg sotalol bid, so this was started on 10/02, and she stayed in sinus rhythm. Separate conversations were held with her regarding anticoagulation, and she consistently declines. She had previously declined lasix, because she didn't want to have to zurita to the bathroom. She tolerated it ok while here, and agrees to taking 20 mg daily lasix at home. Unfortunately, she has had rapid breathing since her COVID infection, and I do not believe this will resolve quickly since it's been 6 months since her infection. She has been very frail since her COVID infection. Attempted skilled nursing placement, but she was not accepted due to her respiratory rate. She is homebound due to her frailty, pulmonary hypertension, and paroxysmal atrial fibrillation. The need for longterm is new medication management (sotalol) and the need for physical therapy is gait instability and balance disorder. The need for home health care skilled services is directly related to the time spent [id number] with her. Procedures Performed: none Results and Findings: Lab Pending Results 09/28/20 11:30: WBC 14.5 H, RBC 4.69, Hgb 12.2 L, Hct 41.8, MCV 89.1, MCH 26.0 L, MCHC 29.2 L, RDW 17.9 H, Plt Count 380, MPV 9.1, Immature Gran % (Auto) 0.50 H, Immature Gran # (Auto) 0.07 H, Neutrophils % 84.3 H, Lymphocytes % 8.0 L, Monocytes % 7.0, Eosinophils % 0.0, Basophils % 0.2, Nucleated RBC % 0.0, Neutrophils # 12.2 H, Lymphocytes # 1.16 L, Monocytes # 1.0, Eosinophils # 0.0, Absolute Basophils 0.0 09/28/20 11:30: Sodium 138, Plasma Sodium 138, Potassium 4.3, Chloride 97, Carbon Dioxide 31.2, Anion Gap 14.1 H, BUN 15, Creatinine 0.65, Est GFR (Non-Af Amer) 93, BUN/Creatinine Ratio 23.1 H, Random Glucose 117 H, Calcium 9.9, Calcium Adj for Albumin 11.0 H, Magnesium 1.9, Total Bilirubin 0.3, AST 28, ALT 19, Alkaline Phosphatase 151, Troponin I Less than 0.017, B-Natriuretic Peptide 2443 H, Total Protein 8.4 H, Albumin 2.2 L, TSH 4.908 H 09/28/20 11:30: PT 11.2 H, INR (Anticoag Therapy) 1.08 09/28/20 11:30: Procalcitonin Less than 0.05 L 09/28/20 11:30: Lactic Acid, Venous 2.4 H* 09/28/20 11:40: SARS-CoV-2 (PCR) Not detected 09/28/20 14:35: Urine Color Pale yellow, Urine Appearance Clear, Urine pH 6.0, Ur Specific Dixie 1.010, Urine Protein Negative, Urine Glucose (UA) Negative, Urine Ketones Negative, Urine Blood Negative, Urine Nitrate Negative, Urine Bilirubin Negative, Urine Urobilinogen Normal, Ur Leukocyte Esterase Negative, Urine RBC None seen, Urine WBC None seen, Ur Epithelial Cells None seen, Urine Bacteria None seen, Urine Culture Comments No culture indicated 09/28/20 15:00: Lactic Acid, Venous 1.7 10/02/20 07:45: WBC 11.0 H, RBC 4.16 L, Hgb 10.9 L, Hct 37.3, MCV 89.7, MCH 26.2 L, MCHC 29.2 L, RDW 17.9 H, Plt Count 301, MPV 9.4, Immature Gran % (Auto) 0.50 H, Immature Gran # (Auto) 0.06 H, Neutrophils % 75.6 H, Lymphocytes % 16.3 L, Monocytes % 7.3, Eosinophils % 0.1, Basophils % 0.2, Nucleated RBC % 0.0, Neutrophils # 8.3 H, Lymphocytes # 1.78, Monocytes # 0.8, Eosinophils # 0.0, Absolute Basophils 0.0 10/02/20 07:45: Sodium 136, Plasma Sodium 136, Potassium 4.3, Chloride 101, Carbon Dioxide 30.7, Anion Gap 8.6, BUN 13, Creatinine 0.46, Est GFR (Non-Af Amer) 138 H D, BUN/Creatinine Ratio 28.3 H, Random Glucose 102, Calcium 9.1, Calcium Adj for Albumin 10.5 H, Total Bilirubin 0.2, AST 37, ALT 18 L, Alkaline Phosphatase 138, Total Protein 7.4, Albumin 1.8 L Discharge Location: Home Disposition: Home Health Service Home Health Agency: [facility] Condition: Good Discharge Activity: Activity as tolerated Discharge Diet: General/regular food Referrals: Hoda Sainz DO [Primary Care Provider] - (previously scheduled visit 10/11/20 at 10:45) Additional Patient Instructions (free text): Please verify she has a visit with Dr. Guzman in October. [facility] new at discharge, please call and fax discharge information to them. Prescriptions (Any new or edited meds): Sotalol HCl [Betapace] 80 mg PO Q12H #60 tab Transmission Status: [facility] [place], [place] Furosemide [Lasix] 20 mg PO DAILY@1100 #60 tab Transmission Status: Received by [facility], [place], [place] Complete Home Medications List: Complete Home Medication List: Furosemide [Lasix] 20 mg PO DAILY@1100 #60 tab 10/04/20 Sotalol HCl [Betapace] 80 mg PO Q12H #60 tab 10/04/20
[2020-10-04 17:25] VITALS: BP 125/77
== END 2020-10-04 17:50 | disposition home health service (06) | DRG 309 ==
LOC: MS 10:50 → ER 10:50 → MS 14:33
PROVIDERS: ADMIT Family Medicine; ATTEND Family Medicine
DX: Z86.16 Personal history of COVID-19; Z68.1 Body mass index [BMI] 19.9 or less, adult; E87.79 Other fluid overload; E46 Unspecified protein-calorie malnutrition; I27.20 Pulmonary hypertension, unspecified; R09.02 Hypoxemia; I48.0 Paroxysmal atrial fibrillation; R00.0 Tachycardia, unspecified